=== PATIENT | male | born 1955 | race African-American/Black ===

== ENCOUNTER 2020-11-12 11:01 | Outpatient (REF) | payer MEDICARE, SELFPAY ==
--- NOTE | ~2020-11-12 | XR_ITS ---
EXAMINATION: XR LEFT KNEE XR BILATERAL KNEES CLINICAL INFORMATION: Left knee pain. COMPARISON: None TECHNIQUE: AP bilateral knees, 1 view. Left knee, 2 views. FINDINGS: AP BILATERAL KNEES: There is loss of bilateral medial knee compartment joint space. The lateral knee joint space is normal. No loose bodies or bony erosive changes seen. LEFT KNEE: There is moderate loss of patellofemoral compartment joint space with mild suprapatellar joint effusion. There is mild suprapatellar spurring as well. There is mild anterior knee superficial soft tissue swelling. No visible acute fracture seen. 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 Mild degenerative changes medial compartment right knee.
--- NOTE | ~2020-11-12 | XR_ITS ---
EXAMINATION: XR LEFT KNEE XR BILATERAL KNEES CLINICAL INFORMATION: Left knee pain. COMPARISON: None TECHNIQUE: AP bilateral knees, 1 view. Left knee, 2 views. FINDINGS: AP BILATERAL KNEES: There is loss of bilateral medial knee compartment joint space. The lateral knee joint space is normal. No loose bodies or bony erosive changes seen. LEFT KNEE: There is moderate loss of patellofemoral compartment joint space with mild suprapatellar joint effusion. There is mild suprapatellar spurring as well. There is mild anterior knee superficial soft tissue swelling. No visible acute fracture seen. XR/XR knee standing BI IMPRESSION: Medial and lateral compartment degenerative arthritic changes left knee with mild suprapatellar joint effusion, mild suprapatellar spurring. Mild degenerative changes medial compartment right knee.
== END 2020-11-12 11:02 | disposition home or self-care (01) ==
LOC: HO.HOSX 11:01
PROVIDERS: PCP Pediatrics; Visit Provider Orthopaedic Surgery
DX: M25.562 Pain in left knee (principal); M25.561 Pain in right knee; Z87.828 Personal history of other (healed) physical injury and trauma
CPT/HCPCS: 73560; 73565; 99202

== ENCOUNTER 2020-11-14 14:09 | Outpatient (REF) | payer MEDICARE, SELFPAY ==
--- NOTE | ~2020-11-14 | MR_ITS ---
EXAMINATION: MR KNEE WITHOUT CONTRAST, LEFT CLINICAL INFORMATION: Strain of the quadriceps muscle, fascia and tendon. COMPARISON: X-rays of the left knee October 2020. TECHNIQUE: MRI of the knee without contrast was performed using routine sequences on a high-field scanner. FINDINGS: MENISCI: Medial Meniscus: Intact. Lateral Meniscus: Intact. LIGAMENTS: Cruciate: Intact. Collateral: Intact. EXTENSOR MECHANISM: Patellar tendon: Postoperative changes which appear related to patellar tendon repair intact. There is slight anterior bowing of the patellar tendon of uncertain clinical significance. This raises a question of elongation perhaps in part related to the tear. Insall-Salvati ratio 1.2 Quadriceps: Tiny focus of increased signal at the insertion of the tendon which could reflect tendinosis or some minimal interstitial partial tearing. See sagittal image 12 series 4. Favor tendinosis. ARTICULAR CARTILAGE/BONE: Patellofemoral Compartment: Focal cartilage heterogeneity and central osteophyte formation in the medial trochlea. Patellar cartilage appears normal. Overall mild arthrosis. Medial Compartment: Normal. Lateral Compartment: Mild surface irregularity heterogeneity along the posterior tibial articular surface. Femoral cartilage normal. Overall minimal arthrosis. JOINT FLUID AND BURSAE: Normal. MR/MR knee LT wo con IMPRESSION: Postop changes related to patellar tendon surgery which appears intact. Slight anterior bowing of the tendon of uncertain clinical significance and may simply be related to the patient's position with the knee in extension. The surrounding ligaments and retinaculum also appear intact. Minimal abnormality at the quadriceps tendon insertion compatible with tendinosis or minimal interstitial partial tearing. Favor tendinosis. No transverse defect or tendon retraction. Mild arthrosis of the patellofemoral compartment. Minimal arthrosis of the lateral compartment.
== END 2020-11-14 14:10 | disposition home or self-care (01) ==
LOC: HO.MRI 14:09
PROVIDERS: PCP Pediatrics; Visit Provider Orthopaedic Surgery
DX: S76.112A Strain of left quadriceps muscle, fascia and tendon, initial encounter (principal); X58.XXXA Exposure to other specified factors, initial encounter; Y93.9 Activity, unspecified; Y92.9 Unspecified place or not applicable; Y99.9 Unspecified external cause status
CPT/HCPCS: 73721

== ENCOUNTER 2021-01-24 07:10 | Outpatient (REF) | payer MEDICARE, SELFPAY | END 2021-01-24 07:11 | disposition home or self-care (01) | LOC: HO.HOSX 07:10 | PROVIDERS: Visit Provider Physician Assistant | DX: Z13.89 Encounter for screening for other disorder (principal) ==

== ENCOUNTER 2024-02-04 12:23 | Emergency (ER) | payer OTHER, SELFPAY ==
--- NOTE | ~2024-02-04 | CT_ITS ---
EXAMINATION: CT ABDOMEN AND PELVIS WITH CONTRAST CLINICAL INFORMATION: Left lower quadrant pain and tenderness. COMPARISON: None available. TECHNIQUE: Multidetector volumetric images were obtained from the superior aspect of the liver through the pubic symphysis following administration 85 mL of Omnipaque 350 intravenous contrast. Sagittal and coronal reformatted images were obtained on the technologist's workstation. Oral contrast: No This CT examination was performed using dose optimization techniques as appropriate, variously including the following: *Automated exposure control *Adjustment of mA and/or kV according to patient size (this includes techniques or standardized protocols for targeted exams where dose is matched to indication/reason for exam; i.e. extremities or head) *Use of iterative reconstruction technique DLP: 1250 mGy-cm FINDINGS: LUNG BASES: The visualized lung bases are unremarkable. LIVER, GALLBLADDER, AND BILIARY TREE: The liver is normal in size, shape, and attenuation. There are numerous low-attenuation hepatic possible cysts, several too small to fully characterize with CT. No biliary ductal dilatation is present. The gallbladder is unremarkable with no evidence of radiopaque gallstones, gallbladder wall thickening, or obvious pericholecystic inflammatory changes. PANCREAS: Within the uncinate process of the pancreas (3:40), a 4.3 x 2.6 cm poorly enhancing lesion is seen. This shows no calcifications. There is mild adjacent fat stranding noted. There is no encasement of the adjacent superior mesenteric vein or inferior vena cava, although there is some stranding of the intervening fat planes. There are shotty peripancreatic lymph nodes. No pancreatic ductal dilatation is seen. There is no atrophic change. SPLEEN: Unremarkable. ADRENAL GLANDS: Unremarkable. KIDNEYS AND URETERS: The kidneys are normal in size, shape, and attenuation. No hydronephrosis, hydroureter, or calculi seen. Benign, simple low-attenuation bilateral renal cysts are seen, for which no imaging follow-up is recommended. No perinephric stranding. BLADDER: Unremarkable. GASTROINTESTINAL TRACT: There is a large hiatus hernia, containing the majority of the stomach. There is moderate diverticulosis, without acute diverticulitis. No bowel obstruction, free intraperitoneal air or abscess is seen. There is no focal bowel wall thickening. The vermiform appendix is not identified with certainty; however, there is no finding to suggest appendicitis. ABDOMINAL WALL: There is a small fat-containing umbilical hernia. LYMPH NODES: Normal. VASCULAR: There is mild aortoiliac atherosclerotic calcification. No abdominal aortic aneurysm or dissection is seen. PELVIC VISCERA: The prostate and seminal vesicles are unremarkable. OSSEOUS STRUCTURES: There is multi-level marked thoracolumbar degenerative disc disease. No acute or aggressive osseous finding is noted. CT/CT abdomen pelvis w IV con IMPRESSION: 1. Within the uncinate process of the pancreas, a 4.3 cm poorly enhancing lesion is seen. There is mild adjacent fat stranding noted, without encasement of adjacent vasculature. No pancreatic or biliary ductal dilatation is seen. Differential considerations include a pancreatic neoplasm and acute focal pancreatitis. Further work-up may be indicated, possibly to include biopsy. GI Medicine evaluation and management is recommended. 2. There are multiple low-attenuation hepatic likely cysts, many too small for full characterization with CT. These could be more fully evaluated with ultrasound or MRI, if clinically indicated. 3. There is a large hiatus hernia. 4. There is moderate diverticulosis, without acute diverticulitis. 5. There is a small fat-containing umbilical hernia. 6. There are multi-level degenerative changes of the spine. Fleischner guidelines were followed.
--- NOTE | ~2024-02-04 | CT_ITS ---
EXAMINATION: CT HEAD WITHOUT CONTRAST CLINICAL INFORMATION: Left-sided headache. Difficulty with speech. COMPARISON: None. TECHNIQUE: Contiguous axial imaging was performed from the skullbase to vertex without intravenous administration of contrast. This CT examination was performed using dose optimization techniques as appropriate, variously including the following: *Automated exposure control *Adjustment of mA and/or kV according to patient size (this includes techniques or standardized protocols for targeted exams where dose is matched to indication/reason for exam; i.e. extremities or head) *Use of iterative reconstruction technique DLP: 770 mGy-cm. FINDINGS: There is no evidence of acute intracranial hemorrhage or territorial infarction. No abnormal mass effect or midline shift is seen. Mejía to white matter differentiation is well preserved. No extra-axial fluid collections are identified. The ventricles are normal in size. There is no abnormal attenuation within the brain parenchyma. The soft tissues are normal. The mastoid air cells and visualized portions of the paranasal sinuses are well aerated. There is a chronic-appearing right nasal bone fracture partially visualized. A mild amount of fluid layers in the dependent right middle ear cavity and right mastoid air cells as well. The nasopharyngeal soft tissues appear grossly normal. CT/CT head/brain wo IV con IMPRESSION: No acute intracranial pathology. Mild amount of fluid in the right middle ear cavity and right mastoid air cells of indeterminate etiology.
--- NOTE | 2024-02-04 12:36 | ED.GENADULT ---
HPI - General Adult General Chief complaint: General Medical Stated complaint: Jaw pain L side Time Seen by Provider: 02/04/24 13:17 History of Present Illness HPI narrative: The patient is a 68-year-old male who has been having problems with the abdominal pains and has also been having problems with pain on the left side of his jaw and the left side of his head generally. He says that he was hospitalized at [facility] last month for what sounds like an episode of upper GI bleeding. He says he received a blood transfusion at [facility] when he was hospitalized last month. He says he also had upper and lower endoscopy and was told that he had some bleeding from what sounds like a hiatal hernia. The patient says that he went to his PCP's office 2 days ago and described that he has been having a lot of black stools and that he has been having the pain on the left side of his head and that he has been having the abdominal pains. He was encouraged to go to an emergency room at that time. He says he went to the emergency room at [facility] and waited 5 hours to be seen but was never taken an and so he left. He says last night he slept poorly because of his abdominal pains. This morning his doctor contacted him and again encouraged him to come to the hospital. He drove himself to the hospital today. He has not had a fever. Says that the abdominal pain is mostly in the left lower quadrant abdominal pain. The patient says he has been using Pepto-Bismol intermittently. He reports having black stools. He says that he was having black stools before he started using the Pepto-Bismol. Related Data Home Medications ?Medication ?Instructions ?Recorded ?Confirmed atorvastatin 20 mg tablet 20 mg PO DAILY 11/12/20 ferrous sulfate 300 mg (60 mg 300 mg PO BID 11/12/20 iron)/5 mL oral liquid losartan 50 mg tablet 50 mg PO DAILY 11/12/20 Previous Rx's ?Medication ?Instructions ?Recorded dicyclomine 10 mg capsule 10 mg PO TID PRN abdominal pain 02/04/24 #30 caps omeprazole 40 mg capsule,delayed 40 mg PO BID 30 days #60 caps 02/04/24 release Allergies Allergy/AdvReac Type Severity Reaction Status Date / Time No Known Allergies Allergy Verified 02/04/24 12:39 Review of Systems Review of Systems: Yes all other systems are reviewed and are negative [facility] Past Medical History Medical History (Updated 02/04/24 @ 19:35 by Daniel Rizzo MD) Rupture of left quadriceps tendon High cholesterol Hypertension Surgical History (Updated 11/12/20 @ 11:07 by LILIAN Talley) S/P left knee surgery (~2011) Social History Social History (Updated 11/12/20 @ 11:10 by LILIAN Talley) Alcohol intake: current Alcohol intake frequency: does not drink Smoked in Last 30 Days: No Use of substances other than those prescribed or required for medical reasons: Yes Substance Use Type: Marijuana Advance Directives: No Advance Directives Information Provided: Yes Current occupational status: unemployed Physical Exam ED Vital Signs: Vital Signs - 24 hr 02/04/24 12:37 02/04/24 13:33 02/04/24 14:58 Temperature 98 F Pulse Rate 87 82 66 Respiratory Rate 19 20 20 Blood Pressure 112/78 145/112 H 134/72 Pulse Oximetry 98 98 99 Oxygen Delivery Method Room Air Room Air Room Air 02/04/24 18:18 02/04/24 20:23 Temperature 97.2 F 97.2 F Pulse Rate 77 77 Respiratory Rate 15 15 Blood Pressure 167/80 H 167/80 H Pulse Oximetry 98 98 Oxygen Delivery Method Room Air Room Air BMI result Body Mass Index 43.1 Const Other: The patient is awake, alert, pleasant, cooperative. He does not appear obviously ill. HENMT Other: Face is symmetrical, mucous membranes moist. There is some left TMJ tenderness. Eyes Other: Pupils are round equal, conjunctivae clear Neck Other: No neck stiffness, no adenopathy, no JVD Resp Effort & Inspection: normal respiratory effort Auscultation: clear to auscultation bilaterally Cardio Rate: regular rate Rhythm: regular rhythm Heart sounds: S1 normal heart sound present and S2 normal heart sound present GI Other: The patient has a large abdomen. There is left lower quadrant tenderness. Back/Spine/Pelvis Other: No CVA percussion tenderness Skin Other: Skin is dry and unremarkable Neuro Other: The patient is awake and alert with a normal mental status. His face is symmetrical. His speech is clear. Eye movements are normal. Strength is intact and symmetrical in all extremities. There is no pronator drift. His gait is steady. Finger-nose is normal. He is neurologically intact. Extrem Other: No calf swelling or tenderness. Course Course Course Narrative: This is a Rapid Medical Examination (RME) performed by Jimbo Silva PA-C in triage. Full HPI, ROS, assessment and treatment plan per primary provider in the Main ED. 68 yo male hx of HTN, HDL here for eval of constant left sided headache x5-6 days. taking tylenol with temporary relief of pain. admits to assoc nausea without vomiting. denies hx of migraines. denies vision changes, dentail pain, scalp tenderness. also reports hospitalization in December for hiatal hernia. now endorses dark stools x months with associated fatigue. reports seeing his PCP and was advised to come to the ED. attempted to go to [facility] however left due to long wait times. exam nonfocal in triage. well appearing. Plan: labs ordered Medications Administered Discontinued Medications Generic Name Dose Route Start Last Admin Trade Name Freq PRN Reason Stop Dose Admin Dicyclomine HCl 10 mg 02/04/24 19:35 02/04/24 19:46 Dicyclomine Hcl 10 Mg Capsule PO 02/04/24 19:36 10 mg ONCE ONE Administration Sodium Chloride 1,000 mls @ 999 mls/hr 02/04/24 14:45 02/04/24 18:21 Ns IV 02/04/24 15:45 Infused .Q1H1M BETTY Infusion Iohexol 100 ml 02/04/24 15:38 02/04/24 15:39 Iohexol 350 Mg/Ml 100 Ml Infus..Btl IV 02/04/24 15:39 85 ml ONCE ONE Administration Sucralfate 2 gm 02/04/24 18:23 02/04/24 18:29 Sucralfate Oral Suspension 1 Gm/10 Ml Oral.Susp PO 02/04/24 18:24 2 gm ONCE ONE Administration Medical Decision Making Medical Decision Making [facility] Narrative: The patient is a 68-year-old male who has been having problems with abdominal pains and some GI bleeding for a few months. He has an appointment with GI in a couple of weeks. My initial impression was that the patient was here because he was having abdominal pains. The workup for his abdominal pain was fairly unremarkable. His labs are unremarkable and a CT of the abdomen and pelvis does not show any acute cause of his pain although there is a questionable finding of a possible pancreatic lesion of uncertain significance. The patient does not have pancreatitis. The patient was given IV fluids. Patient ultimately expressed that he had come to the emergency room in large part because his primary care doctor whom he had seen 2 days ago was concerned about the possibility that he might have had a stroke recently because his primary care doctor had thought that he had abnormal speech. The patient had explained to me that he did not think he had had abnormal speech any point although at 1 point when she called him at home she woke him from sleep and he may have sounded groggy. The patient seemed intent on getting a head CT who satisfy his PCP's concern about a possible stroke. His head CT is negative. On my rectal exam the patient had brown stool. There was certainly no melena. His brown stool is Hemoccult positive however. He is on omeprazole 20 mg b.i.d.. He had recent upper and lower endoscopy and apparently has a hiatal hernia and a history of Jac lesions. I think the patient may have some chronic low-grade GI bleeding but I do not think he requires hospitalization for GI bleed today. He has a fairly this soon upcoming appointment with his client relations associate. He will be advised to double his omeprazole. I will also prescribe dicyclomine for what he describes as 2 months of abdominal discomfort that prevents him from sleeping. The patient was discharged with a copy of his disc of his CT scan to bring to his client relations associate to discuss his pancreatic lesion. Lab Data 02/04/24 13:27 02/04/24 13:27 Labs: Lab Results 02/04/24 02/04/24 02/04/24 Range/Units 13:27 15:55 16:40 WBC 7.1 (4.8-10.8) X10*3/uL RBC 5.39 (4.60-5.80) X10*6/uL Hgb 13.5 L (14.0-18.0) g/dl Hct 41.3 L (42.0-52.0) % MCV 76.6 L (80.0-98.0) fL MCH 25.0 L (27.0-33.0) pg MCHC 32.7 (31.0-36.0) g/dl RDW 17.7 H (11.0-16.0) % Plt Count 310 (160-400) X10*3/uL MPV 10.4 (9.4-12.4) fL Immature Gran % (Auto) 0.3 (0.0-0.4) % Neut % (Auto) 54.4 (45-73) % Lymph % (Auto) 30.8 (20-40) % Grafton % (Auto) 10.5 (2-11) % Eos % (Auto) 3.2 (0-4) % Baso % (Auto) 0.8 (0-2) % Lymph # (Auto) 2.2 (1.2-4.9) X10*3/uL G[place]on # (Auto) 0.8 (0.1-1.2) X10*3/uL Eos # (Auto) 0.2 (0.0-0.4) X10*3/uL Baso # (Auto) 0.1 (0.0-0.2) X10*3/uL Abs Immat Gran (auto) 0.02 (0.00-0.03) X10*3/uL Absolute Neuts (auto) 3.9 (2.0-8.3) x10*3/uL Absolute Nucleated RBC 0.000 (0.0-0.012) X10*3/uL Nucleated RBC % (auto) 0.0 (0.0-0.2) /100WBC ESR 10 (0-15) MM/HR PT 12.0 (11.1-13.3) SEC INR 1.0 (0.9-1.1) Sodium 141 (135-145) mmol/L Potassium 3.8 (3.3-5.1) mmol/L Chloride 109 H (96-108) mmol/L Carbon Dioxide 23 (22-29) mmol/L Anion Gap 13 (12-20) BUN 16 (9-16) mg/dL Creatinine 1.17 (0.5-1.4) mg/dL Estim Creat Clear Calc 96.8 Estimated GFR > 60 Random Glucose 95 (60-115) mg/dL Calcium 9.1 (8.4-10.2) mg/dL Magnesium 2.3 (1.6-2.6) mg/dL Total Bilirubin 0.5 (0.0-1.0) mg/dL AST 15 (5-37) U/L ALT 14 (0-40) U/L Alkaline Phosphatase 58 (39-117) U/L Troponin I High Sens 3.2 (<3.5-35.0) ng/L C-Reactive Protein 0.61 H (< or = 0.50) mg/dL Total Protein 7.5 (6.5-8.0) g/dL Albumin 4.1 (3.5-5.0) g/dL Lipase 75 (8-78) U/L Urine Color Yellow Urine Appearance Clear Urine pH 6.5 (5.0-9.0) Ur Specific Alden >= 1.030 H (1.005-1.025) Urine Protein Negative (Neg-Trace) mg/dL Urine Glucose (UA) Negative (Negative) mg/dL Urine Ketones Trace (Negative) mg/dL Urine Blood Negative (Negative) Urine Nitrite Negative (Negative) Ur Leukocyte Esterase Moderate (2+) H (Negative) Urine RBC 0-2 (0-2) /HPF Urine WBC >50 H (0-5) /HPF Ur Squamous Epith Cells 3-5 (0-2) /HPF Urine Bacteria None Seen (None Seen) Hyaline Casts 0-2 (0-2) /LPF Stool Occult Blood POSITIVE (NEGATIVE) Discharge Plan Discharge Clinical Impression: Abdominal pain, Pancreatic lesion, Occult blood positive stool, Left-sided headache, Left-sided temporomandibular joint pain-dysfunction syndrome Patient Disposition: Home, Self-Care Additional Instructions: Your testing in the emergency room today does not show signs of a stroke. It also does not show any acute cause of your abdominal pain. Your stool testing shows a microscopic amount of blood in your stool but I do not think you are having significant ongoing bleeding. Your blood counts are good. I would recommend increasing your omeprazole. Currently you are taking 20 mg 2 times a day. You may take 40 mg 2 times a day. I have sent a new prescription for this dose of omeprazole. I have also sent a prescription for medication called dicyclomine which you may try to see if it helps with your abdominal pains. This is an antispasmodic medication. Please plan on keeping your appointment that you have soon with your client relations associate. You will need to discuss the microscopic blood in your stool. Additionally the CT scan of your abdomen showed a lesion on your pancreas that you should discuss with your client relations associate as well. I do not think you are having a stroke. I think the pain on the left side of your face may be coming from the temporomandibular joint of the left side of your jaw. This is a frequent source of facial pain. You may take Tylenol for this pain. Please also follow up with your primary care doctor. Return to the emergency room if you feel significantly worse. Prescriptions: New dicyclomine 10 mg capsule 10 mg PO TID PRN (Reason: abdominal pain) Qty: 30 0RF omeprazole 40 mg capsule,delayed release(DR/EC) 40 mg PO BID 30 Days Qty: 60 0RF Referrals: [facility] [Outside] (abdominal pain, pancreatic lesion, left TMJ pain) Wiley Leger MD [Physician] - (Hemoccult-positive stool, pancreatic lesion on CT scan) Interventions: ED Discharge Assessment Last Done: 02/04/24 20:23 Discharge Date/Time: 02/04/24 20:24 Print Language: Guamanian
[2024-02-04 12:37] VITALS: BP 112/78; PULSE 87; RESP 19; TEMP 36.6; O2SAT 98; BMI 43.1
[2024-02-04 13:32] LABS: MANUAL DIFF FLAG NO
[2024-02-04 13:33] VITALS: BP 145/112; PULSE 82; RESP 20; O2SAT 98
[2024-02-04 13:34] LABS: Basophils Absolute Auto 0.1 X10*3/uL (0.0-0.2); Basophils Percent Auto 0.8 % (0-2); Eosinophils Absolute Auto 0.2 X10*3/uL (0.0-0.4); Eosinophils Percent Auto 3.2 % (0-4); Hematocrit 41.3 % (42.0-52.0); Hemoglobin 13.5 g/dl (14.0-18.0); Imm Gran Abs Auto 0.02 X10*3/uL (0.00-0.03); Imm Gran Pct Auto 0.3 % (0.0-0.4); Lymphocytes Absolute Auto 2.2 X10*3/uL (1.2-4.9); Lymphocytes Percent Auto 30.8 % (20-40); Mean Corpuscular HGB Conc 32.7 g/dl (31.0-36.0); Mean Corpuscular Volume 76.6 fL (80.0-98.0); Mean Platelet Volume 10.4 fL (9.4-12.4); Monocytes Absolute Auto 0.8 X10*3/uL (0.1-1.2); Monocytes Percent Auto 10.5 % (2-11); Neutrophils Absolute Auto 3.9 x10*3/uL (2.0-8.3); Neutrophils Percent Auto 54.4 % (45-73); Platelet Count 310 X10*3/uL (160-400); Red Blood Count 5.39 X10*6/uL (4.60-5.80); Red Cell Distribution Width 17.7 % (11.0-16.0); White Blood Count 7.1 X10*3/uL (4.8-10.8)
--- NOTE | 2024-02-04 13:34 | PC.NURSE ---
Pt reports diffuse abd pain mostly to LLQ without vomiting. Also reports constipation with black stools. States recent GI bleed at [facility] with transfusions needed. Also reports headache left sided and jaw pain. Denies CP at this time and denies SOB or dizziness. HTN, took meds today. NSR on tele. Neuros intake, speech is clear and pt reports normal for him. States headache is 3/10 abd pain is 10/10
--- NOTE | 2024-02-04 13:38 | ECG_ITS ---
Test Reason : JAW PAIN Blood Pressure : / mmHG Vent. Rate : 072 BPM Atrial Rate : 072 BPM P-R Int : 148 ms QRS Dur : 092 ms QT Int : 418 ms P-R-T Axes : 040 -01 018 degrees QTc Int : 457 ms Normal sinus rhythm Nonspecific T wave abnormality Abnormal ECG No previous ECGs available Referred By: Daniel Rizzo Electronically Signed By:JAM FERRARA MD
[2024-02-04 13:45] LABS: C Reactive Protein 0.61 mg/dL (< or = 0.50)
[2024-02-04 13:47] LABS: Alanine Aminotransferase 14 U/L (0-40); Albumin Level 4.1 g/dL (3.5-5.0); Alkaline Phosphatase 58 U/L (39-117); Anion Gap 13 (12-20); Aspartate Amino Transferase 15 U/L (5-37); Bilirubin Total 0.5 mg/dL (0.0-1.0); Blood Urea Nitrogen 16 mg/dL (9-16); Calcium 9.1 mg/dL (8.4-10.2); Carbon Dioxide 23 mmol/L (22-29); Chloride 109 mmol/L (96-108); Creatinine Clr Calc Pharmacy 96.8; Estimated Glomerular Filt Rate > 60; Glucose Random 95 mg/dL (60-115); Lipase 75 U/L (8-78); Magnesium 2.3 mg/dL (1.6-2.6); Potassium 3.8 mmol/L (3.3-5.1); Sodium 141 mmol/L (135-145); Total Protein 7.5 g/dL (6.5-8.0)
[2024-02-04 13:54] LABS: Troponin-I High Sensitivity 3.2 ng/L (<3.5-35.0)
[2024-02-04 14:58] VITALS: BP 134/72; PULSE 66; RESP 20; O2SAT 99
[2024-02-04] MEDS: 0.9 % Sodium Chloride 1,000 ML 999 ML IV (15:16)
--- NOTE | 2024-02-04 15:20 | PC.NURSE ---
IV established, awaits CT scan. abd discomfort and headache unchanged at this time, eyes closed when not talking to pt. Warm blanket given and lights off
[2024-02-04 15:35] LABS: Erythrocyte Sedimentation Rate 10 MM/HR (0-15)
[2024-02-04] MEDS: iohexoL 350 MG/ML 100 ML INFUS..BTL IV (15:39)
[2024-02-04 16:04] LABS: Appearance Urine Clear; Color Urine Yellow; Glucose Urine UA Negative (Negative); Leukocyte Esterase Urine Moderate (2+) (Negative); Nitrite Urine Negative (Negative); PH 6.5 (5.0-9.0); Specific Gravity - Urine >= 1.030 (1.005-1.025); UMIC TRIGGER UACC YES; Urine Blood Negative (Negative); Urine Ketones Trace mg/dL (Negative); Urine Protein Negative (Neg-Trace)
[2024-02-04 16:06] LABS: Bacteria Urine None Seen (None Seen); Hyaline Casts Urine 0-2 /LPF (0-2); RBC Urine 0-2 /HPF (0-2); UACC Culture Trigger YES; WBC Urine >50 /HPF (0-5)
[2024-02-04 16:51] LABS: OBS Int Ctl Valid YES; OBS1 POSITIVE (NEGATIVE)
[2024-02-04 18:18] VITALS: BP 167/80; PULSE 77; RESP 15; TEMP 36.2; O2SAT 98
--- NOTE | 2024-02-04 18:25 | PC.NURSE ---
Pt agitated while awaiting CT results, Nathen called and states they are reading scan at this time. Dr Rizzo to order Sulcrafate
[2024-02-04] MEDS: Sucralfate Oral Suspension 1 GM/10 ML ORAL.SUSP 2 GM PO (18:29)
--- NOTE | 2024-02-04 18:44 | PC.NURSE ---
Pt caio wharton head CT states PCP wanted tor/o stroke. Dr Rizzo to bedside and neuros are intact, plan for head CT
[2024-02-04] MEDS: Dicyclomine HCl 10 MG CAPSULE PO (19:46)
--- NOTE | 2024-02-04 19:48 | PC.NURSE ---
this RN resumed care of pt at 1900. a&ox4. vss and up to date. nsr on the media monitor. pt c/o 06/09 diffuse abd pain at this time. medication administered per provider order. effectiveness pending. no sob/wob noted. respirations even/unlabored. plan of care ongoing. call john placed within reach.
[2024-02-04 20:23] VITALS: BP 167/80; PULSE 77; RESP 15; TEMP 36.2; O2SAT 98
--- NOTE | 2024-02-04 20:23 | PC.NURSE ---
pt verbalizing pain level decreased to a 5/10 post medication administration. physical copies of CT results provided to PT.
== END 2024-02-04 20:24 | disposition home or self-care (01) ==
PROVIDERS: Physician Assistant Medical; Emergency Provider Emergency Medicine; PCP Pediatrics
DX: R68.84 Jaw pain (principal); K92.2 Gastrointestinal hemorrhage, unspecified; R51.9 Headache, unspecified; R94.31 Abnormal electrocardiogram [ECG] [EKG]; R11.0 Nausea; N39.0 Urinary tract infection, site not specified; R10.32 Left lower quadrant pain; F12.90 Cannabis use, unspecified, uncomplicated; Z79.899 Other long term (current) drug therapy
CPT/HCPCS: 36415; 70450; 74177; 80053; 81001; 82272; 83690; 83735; 84484; 85025; 85610; 85652; 86140; 87086; 93005; 96360; 96361; 99284; 99285; Q9967

== ENCOUNTER → 2024-02-04 13:38 | Outpatient (BNV) | payer OTHER, SELFPAY | PROVIDERS: Emergency Provider Emergency Medicine; PCP Pediatrics; Visit Provider Internal Medicine Cardiovascular Disease | DX: R68.84 Jaw pain (principal); R94.31 Abnormal electrocardiogram [ECG] [EKG] | CPT/HCPCS: 93010 ==

== ENCOUNTER 2024-02-25 09:12 | Inpatient (IN) | payer MEDICARE, OTHER, SELFPAY ==
--- NOTE | ~2024-02-25 | MR_ITS ---
EXAMINATION: MR ABDOMEN WITHOUT AND WITH CONTRAST CLINICAL INFORMATION: Abnormal pancreas. COMPARISON: CT scan of abdomen and pelvis 02/25/2024 and 02/04/2024. TECHNIQUE: MR abdomen was performed without and with use of 10 mL intravenous Gadavist gadolinium contrast. Postcontrast images are performed in multiphase dynamic sequences. Imaging was performed in 3 planes. 3-D MRCP sequence is obtained. FINDINGS: LUNG BASES: The visualized lung bases are unremarkable. Large sliding hiatal hernia containing stomach is redemonstrated. LIVER, GALLBLADDER, AND BILIARY TREE: The liver is normal in size, contour and signal intensity. Multiple scattered simple cysts are noted throughout the liver with the largest one in the left hepatic lobe anteriorly measuring 3.4 cm in maximum dimension. The gallbladder is unremarkable with no evidence of gallbladder wall thickening, or obvious pericholecystic inflammatory changes. No evidence of intrahepatic biliary ductal dilatation. Common bile duct is normal in caliber. No filling defect is noted in the common bile duct. PANCREAS: Abnormal heterogeneous masslike appearance of the uncinate process. As best seen on the postcontrast images, there is hypoenhancing masslike lesion in the uncinate process with peripheral irregular rim enhancement (series 101 image 77). The finding measures 3.1 x 4.6 cm in AP and transverse dimensions. The pancreatic duct in the pancreatic head is dilated measuring 0.8 cm diameter which is presumed to be related to the mass effect over the pancreatic duct by the masslike lesion in the uncinate process. The pancreatic duct in the pancreatic tail measures 0.4 cm in diameter. Remainder of the pancreas enhances normally. No additional pancreatic mass lesion is seen. There might be mild fat stranding around the uncinate process of the pancreas. Fat plane between the uncinate process lesion and adjacent SMA and SMV appears to be preserved. There is mass effect over the transverse portion of the duodenum. SPLEEN: Normal. ADRENAL GLANDS: No focal adrenal nodule. KIDNEYS AND URETERS: The kidneys are normal in size, shape, and enhance symmetrically. No hydronephrosis. No perinephric stranding. Several bilateral subcentimeter simple renal cysts are noted. A 1 cm simple cyst is noted in the lower pole of the left kidney. No following imaging for renal cysts is warranted. GASTROINTESTINAL TRACT: Large sliding hiatal hernia containing stomach. Evaluation of the bowel on the MRI is somewhat limited without oral contrast. No abnormal bowel dilatation is seen. ABDOMINAL WALL: No significant hernia is appreciated. LYMPH NODES: No pathologically enlarged lymph nodes. VASCULAR: Intrahepatic and extrahepatic portal venous system, hepatic veins, splenic vein, SMV, IVC, aorta, hepatic arteries, celiac axis, and SMA opacify normally and are normal in caliber. OSSEOUS STRUCTURES: Marrow signal normal. MR/MR abdomen wo/w con IMPRESSION: 1. Masslike lesion in the uncinate process of the pancreas measuring 3.1 x 4.6 cm in AP and transverse dimensions. The finding is concerning for pancreatic neoplasm. Other differential possibility may include paraduodenal/groove pancreatitis. Recommend correlation with tissue sampling. Recommend clinical correlation, correlation with lab values and tumor markers. 2. No evidence of biliary ductal dilatation. 3. Multiple simple hepatic cysts. 4. Large sliding hiatal hernia containing stomach.
--- NOTE | ~2024-02-25 | CT_ITS ---
EXAMINATION: CT ABDOMEN AND PELVIS WITH CONTRAST CLINICAL INFORMATION: Upper abdominal pain with elevated lipase and history of pancreatic lesion COMPARISON: 02/04/2024 TECHNIQUE: Multidetector volumetric images were obtained from the superior aspect of the liver through the pubic symphysis following administration 100 mL of Omnipaque 350 intravenous contrast. Sagittal and coronal reformatted images were obtained on the technologist's workstation. Oral contrast: No This CT examination was performed using dose optimization techniques as appropriate, variously including the following: *Automated exposure control *Adjustment of mA and/or kV according to patient size (this includes techniques or standardized protocols for targeted exams where dose is matched to indication/reason for exam; i.e. extremities or head) *Use of iterative reconstruction technique DLP: 1207 mGy-cm FINDINGS: LUNG BASES: The visualized lung bases are unremarkable. LIVER, GALLBLADDER, AND BILIARY TREE: Liver is of low attenuation with multiple low-attenuation lesions most likely cysts or hemangiomas stable since previous examination. The largest lesion in the left lobe of the liver measured 3.5 x 2.4 cm with attenuation of minus 5HU. The gallbladder is unremarkable with no evidence of radiopaque gallstones, gallbladder wall thickening, or obvious pericholecystic inflammatory changes. PANCREAS: There is ill-defined mass in the uncinate process of pancreas, measured 3.6 x 3.6 x 4.7 cm of low attenuation and there is mild peripancreatic stranding surrounding the pancreatic head and uncinate process. Pancreatic duct is prominent, measured 0.7 cm in the pancreatic head. There are a few small peripancreatic lymph nodes visualized. SPLEEN: Unremarkable. ADRENAL GLANDS: Unremarkable. KIDNEYS AND URETERS: There is small exophytic cyst in the lower pole of left kidney measured 0.9 cm BLADDER: Unremarkable. GASTROINTESTINAL TRACT: There are changes of colonic diverticulosis without diverticulitis. Moderate size hiatal hernia. Appendix is not clearly seen ABDOMINAL WALL: Fat-containing small umbilical hernia LYMPH NODES: Small scattered mesenteric lymph nodes present VASCULAR: Unremarkable. PELVIC VISCERA: Unremarkable. OSSEOUS STRUCTURES: Unremarkable. CT/CT abdomen pelvis w IV con IMPRESSION: Pancreatitis versus pancreatic uncinate process neoplasm correlate with clinical history and follow-up by MRI. Multiple small benign-appearing lesions in the liver most likely cysts or hemangiomas Small umbilical hernia Moderate size hiatal hernia Diverticulosis and lymph nodes in the mesentery Fleischner guidelines were followed.
[2024-02-25 09:22] VITALS: BP 159/78; PULSE 84; RESP 19; TEMP 36.6; O2SAT 98; BMI 42.0
[2024-02-25 09:40] LABS: MANUAL DIFF FLAG NO
[2024-02-25 09:41] LABS: Basophils Percent Auto 0.4 % (0-2); Eosinophils Absolute Auto 0.3 X10*3/uL (0.0-0.4); Eosinophils Percent Auto 2.7 % (0-4); Hematocrit 37.3 % (42.0-52.0); Hemoglobin 12.2 g/dl (14.0-18.0); Imm Gran Abs Auto 0.02 X10*3/uL (0.00-0.03); Imm Gran Pct Auto 0.2 % (0.0-0.4); Lymphocytes Absolute Auto 2.3 X10*3/uL (1.2-4.9); Lymphocytes Percent Auto 25.1 % (20-40); Mean Corpuscular HGB Conc 32.7 g/dl (31.0-36.0); Mean Corpuscular Hemoglobin 25.3 pg (27.0-33.0); Mean Corpuscular Volume 77.4 fL (80.0-98.0); Mean Platelet Volume 9.7 fL (9.4-12.4); Monocytes Absolute Auto 0.8 X10*3/uL (0.1-1.2); Monocytes Percent Auto 9.1 % (2-11); Neutrophils Absolute Auto 5.8 x10*3/uL (2.0-8.3); Neutrophils Percent Auto 62.5 % (45-73); Platelet Count 296 X10*3/uL (160-400); Red Blood Count 4.82 X10*6/uL (4.60-5.80); Red Cell Distribution Width 16.5 % (11.0-16.0); White Blood Count 9.3 X10*3/uL (4.8-10.8)
[2024-02-25 10:00] LABS: Alanine Aminotransferase 9 U/L (0-40); Albumin Level 4.1 g/dL (3.5-5.0); Alkaline Phosphatase 57 U/L (39-117); Anion Gap 12 (12-20); Aspartate Amino Transferase 13 U/L (5-37); Bilirubin Direct 0.2 mg/dL (0.0-0.5); Bilirubin Total 0.6 mg/dL (0.0-1.0); Blood Urea Nitrogen 15 mg/dL (9-16); Calcium 9.3 mg/dL (8.4-10.2); Carbon Dioxide 24 mmol/L (22-29); Chloride 109 mmol/L (96-108); Creatinine Clr Calc Pharmacy 108.4; Estimated Glomerular Filt Rate > 60; Glucose Random 129 mg/dL (60-115); Potassium 3.4 mmol/L (3.3-5.1); Sodium 142 mmol/L (135-145); Total Protein 7.5 g/dL (6.5-8.0)
[2024-02-25 10:09] LABS: Lipase 1530 U/L (8-78)
[2024-02-25 11:10] VITALS: BP 155/86; PULSE 86; RESP 16; TEMP 36.6; O2SAT 98
--- NOTE | 2024-02-25 11:11 | ED.ABDPAIN ---
HPI - Abdominal Pain General Chief Complaint: Abdominal Pain Stated Complaint: abd pain Time Seen by Provider: 02/25/24 11:58 History of Present Illness ED Provider: Matthias DIGGS narrative: The patient is a 68-year-old male who has been having problems with abdominal symptoms over the last few months. He had had dark stools and was hospitalized briefly for an uncertain GI bleed at [facility] in November. He received a blood transfusion. I believe no definite source of bleeding was identified at the time. He continued to have abdominal pains and came to the emergency room here 3 weeks ago. At that time he had unremarkable labs. A CT of the abdomen and pelvis showed a 4.3 cm poorly enhancing lesion. The differential included a pancreatic neoplasm versus focal pancreatitis. The patient was discharged to follow up with his manager managed care. Patient says that he is continued to have abdominal pains that have really interfered with his ability to function since leaving the emergency room that day. He says that he followed up with his manager managed care several days ago but no particular plan was made. He returns today because he continues to have ongoing abdominal pain and nausea. He also says that his stools have been floating over the last several days. He says his stools are dark but not black. He has not had a fever. He has had a decreased appetite. No vomiting. Related Data Home Medications ?Medication ?Instructions ?Recorded ?Confirmed atorvastatin 20 mg tablet 20 mg PO DAILY 11/12/20 02/25/24 acetaminophen 650 mg 1,300 mg PO Q6H PRN Pain 02/25/24 02/25/24 tablet,extended release losartan 100 1 tab PO DAILY 02/25/24 02/25/24 mg-hydrochlorothiazide 25 mg tablet Previous Rx's ?Medication ?Instructions ?Recorded dicyclomine 10 mg capsule 10 mg PO TID PRN abdominal pain 02/04/24 #30 caps omeprazole 40 mg capsule,delayed 40 mg PO BID 30 days #60 caps 02/04/24 release Allergies Allergy/AdvReac Type Severity Reaction Status Date / Time No Known Allergies Allergy Verified 02/25/24 09:23 Review of Systems Review of Systems Yes all other systems are reviewed and are negative [facility] Past Medical History Medical History Rupture of left quadriceps tendon High cholesterol Hypertension Surgical History S/P left knee surgery (~2011) Social History Social History Household Members: Spouse Housing: House Alcohol intake: current Alcohol intake frequency: does not drink Patient Tobacco Use Status: Never used Tobacco Smoked in Last 30 Days: No Second Hand Smoke Exposure: No Use of substances other than those prescribed or required for medical reasons: No Substance Use Type: Marijuana Currently Displaying Signs/Symptoms of Drug Intoxication Withdrawal: No Any prior treatment program specific to substance use: No Have you been hit, kicked, punched, or otherwise hurt by someone within the past year? If so, by whom?: No Do you feel safe in your current relationship?: Yes Is there a partner from a previous relationship who is making you feel unsafe now?: No Are you made to feel afraid or neglected: No Advance Directives: No Advance Directives Information Provided: Yes Do you have a plan to hurt others: No Plan Recently lost weight without trying: No Eating poorly because of decreased appetite: Yes Nutrition Risks: No Nutritional Risk Current occupational status: unemployed Physical Exam ED Vital Signs: Vital Signs - 24 hr 02/25/24 09:22 02/25/24 11:10 02/25/24 14:00 Temperature 98 F 97.9 F 97.8 F Pulse Rate 84 86 73 Respiratory Rate 19 16 15 Blood Pressure 159/78 H 155/86 H 154/66 H Pulse Oximetry 98 98 97 Oxygen Delivery Method Room Air Room Air Room Air 02/25/24 15:28 02/25/24 16:00 Temperature 97.6 F 98.3 F Pulse Rate 77 74 Respiratory Rate 18 15 Blood Pressure 167/79 H 149/75 H Pulse Oximetry 99 99 Oxygen Delivery Method Room Air Room Air BMI result Body Mass Index 41.7 Const Other: The patient is awake, alert, pleasant, cooperative. He has a normal mental status. He does not appear acutely toxic. HENMT Other: Face is symmetrical. Mucous membranes moist. Eyes Other: Pupils are round equal, conjunctivae clear Neck Other: No apparent JVD Resp Effort & Inspection: normal respiratory effort Auscultation: clear to auscultation bilaterally Cardio Rate: regular rate Rhythm: regular rhythm Heart sounds: S1 normal heart sound present and S2 normal heart sound present GI Other: Mild upper abdominal tenderness. Skin Other: Skin is dry and unremarkable Neuro Other: The patient is awake and alert with a normal mental status. Cranial nerves are grossly intact. He moves his extremities symmetrically. No lateralizing findings. Extrem Other: No peripheral edema Course Course Course Narrative: This is an RME: Additional HPI, ROS, PE not included below will be deferred to primary provider. RME assessment and note performed by: Brianna Villalobos PA-C This is a 68-year-old male, with a history of hypertension, who presents emergency department with complaints of ongoing abdominal pain for the last 2 weeks. He endorses nausea. He was seen here 2 weeks ago where he had a CT scan which revealed a uncinate process of the pancreas, a 4.3 cm poorly enhancing lesion. Also showing mild adjacent fat stranding. He was advised to follow-up with GI. He followed up with [facility] on Thursday however they did not do anything as they could not review the CT scan that was performed here at [facility] 2 weeks ago as the disc was not compatible with their system. Vital signs within normal limits. He has diffuse abdominal tenderness throughout. Labs were previously ordered, he has an elevated lipase of 1530, from 75 which was performed 2 weeks ago. Vital signs within normal limits. Informed charge nurse that patient should be brought back sooner rather than later. He is nontoxic-appearing. Plan: Further ER evaluation needed. Medical Decision Making Medical Decision Making MDM Narrative: The patient is a 68-year-old male with persistent upper abdominal pain over the last few weeks. He was seen here 3 weeks ago. He had a normal lipase at that time. A CT of the abdomen showed a pancreatic lesion of uncertain significance. He was discharged to follow up with Gastroenterology. He returns today with persistent symptoms has a lipase of 1500. His CT scan has been read as showing signs of pancreatitis and a possible lesion. The patient will be admitted for symptom care and further evaluation. Lab Data 02/25/24 09:35 02/25/24 09:35 Labs: Lab Results 02/25/24 Range/Units 09:35 WBC 9.3 (4.8-10.8) X10*3/uL RBC 4.82 (4.60-5.80) X10*6/uL Hgb 12.2 L (14.0-18.0) g/dl Hct 37.3 L (42.0-52.0) % MCV 77.4 L (80.0-98.0) fL MCH 25.3 L (27.0-33.0) pg MCHC 32.7 (31.0-36.0) g/dl RDW 16.5 H (11.0-16.0) % Plt Count 296 (160-400) X10*3/uL MPV 9.7 (9.4-12.4) fL Immature Gran % (Auto) 0.2 (0.0-0.4) % Neut % (Auto) 62.5 (45-73) % Lymph % (Auto) 25.1 (20-40) % Villalba % (Auto) 9.1 (2-11) % Eos % (Auto) 2.7 (0-4) % Baso % (Auto) 0.4 (0-2) % Lymph # (Auto) 2.3 (1.2-4.9) X10*3/uL Villalba # (Auto) 0.8 (0.1-1.2) X10*3/uL Eos # (Auto) 0.3 (0.0-0.4) X10*3/uL Baso # (Auto) 0.0 (0.0-0.2) X10*3/uL Abs Immat Gran (auto) 0.02 (0.00-0.03) X10*3/uL Absolute Neuts (auto) 5.8 (2.0-8.3) x10*3/uL Absolute Nucleated RBC 0.000 (0.0-0.012) X10*3/uL Nucleated RBC % (auto) 0.0 (0.0-0.2) /100WBC Sodium 142 (135-145) mmol/L Potassium 3.4 (3.3-5.1) mmol/L Chloride 109 H (96-108) mmol/L Carbon Dioxide 24 (22-29) mmol/L Anion Gap 12 (12-20) BUN 15 (9-16) mg/dL Creatinine 1.03 (0.5-1.4) mg/dL Estim Creat Clear Calc 108.4 Estimated GFR > 60 Random Glucose 129 H (60-115) mg/dL Calcium 9.3 (8.4-10.2) mg/dL Total Bilirubin 0.6 (0.0-1.0) mg/dL Direct Bilirubin 0.2 (0.0-0.5) mg/dL AST 13 (5-37) U/L ALT 9 (0-40) U/L Alkaline Phosphatase 57 (39-117) U/L Troponin I High Sens 4.1 (<3.5-35.0) ng/L Total Protein 7.5 (6.5-8.0) g/dL Albumin 4.1 (3.5-5.0) g/dL Triglycerides 98 (<150) mg/dL Cholesterol 126 (<200) mg/dL LDL Cholesterol, Calc 73 (<100) mg/dL HDL Cholesterol 34 L (>40) mg/dL Lipase 1530 H (8-78) U/L Medications Administered Generic Name Dose Route Start Last Admin Trade Name Freq PRN Reason Stop Dose Admin Enoxaparin Sodium 40 mg 02/25/24 18:00 02/25/24 19:30 Enoxaparin Sodium 40 Mg/0.4 Ml Syringe SUBCUT Not Given Q24H BETTY Hydromorphone HCl 0.5 mg 02/25/24 17:51 02/25/24 19:29 Hydromorphone Hcl 1 Mg/Ml Syringe IVPUSH 0.5 mg Q4H PRN Administration Pain, Severe (Pain Scale 7-10) Protocol Lactated Ringer's 1,000 mls @ 125 mls/hr 02/25/24 18:00 02/25/24 19:29 Lr IVCONT 125 mls/hr .Q8H BETTY Administration Ondansetron HCl 4 mg 02/25/24 17:46 02/25/24 19:29 Ondansetron Hcl 4 Mg/2 Ml Vial IVPUSH 4 mg Q8H PRN Administration Nausea and Vomiting Sodium Chloride 3 ml 02/26/24 00:00 02/25/24 22:22 0.9 % Sodium Chloride Flush 3 Ml Syringe IVFLUSH Not Given QSHIFT BETTY Discontinued Medications Generic Name Dose Route Start Last Admin Trade Name Freq PRN Reason Stop Dose Admin Sodium Chloride 1,000 mls @ 999 mls/hr 02/25/24 12:15 02/25/24 13:16 Ns IV 02/25/24 13:15 Infused .Q1H1M BETTY Infusion Iohexol 100 ml 02/25/24 12:45 02/25/24 12:45 Iohexol 350 Mg/Ml 100 Ml Infus..Btl IV 02/25/24 12:46 85 ml ONCE ONE Administration Morphine Sulfate 4 mg 02/25/24 15:20 02/25/24 15:29 Morphine Sulfate 4 Mg/Ml Cartridge IVPUSH 02/25/24 15:21 4 mg ONCE ONE Administration Protocol Ondansetron HCl 4 mg 02/25/24 15:20 02/25/24 15:29 Ondansetron Hcl 4 Mg/2 Ml Vial IVPUSH 02/25/24 15:21 4 mg ONCE ONE Administration Discharge Plan Discharge Clinical Impression: Acute pancreatitis Patient Disposition: Admitted As Inpatient Interventions: Admission Worksheet (ED) Last Done: 02/25/24 19:34 Discharge Date/Time: 02/25/24 20:16
--- NOTE | 2024-02-25 12:04 | PC.NURSE ---
a&ox4. vss and up to date. nsr on the marketing editor. pt presents w/ abd pain/nausea x 2 weeks. denies fever/chills/vomiting. pt reports decreased PO intake. recently seen in ED x 2 weeks ago - received CT scan/followed up w/ GI at [facility] on thursday. pt verbalizes no interventions completed at recent appointment. abd tender w/ palpation. pt seemingly uncomfortable as he is tearful/states difficulty moving d/t pain. no sob/wob noted. respirations even/unlabored. plan of care ongoing. call john placed within reach.
[2024-02-25 12:07] VITALS: BMI 41.7
[2024-02-25] MEDS: 0.9 % Sodium Chloride 1,000 ML 999 ML IV (12:15)
--- NOTE | 2024-02-25 12:16 | PC.NURSE ---
20gIV placed in the right AC - IVF administered per provider order. pt waiting to go to CT at this time.
[2024-02-25] MEDS: iohexoL 350 MG/ML 100 ML INFUS..BTL IV (12:45)
--- NOTE | 2024-02-25 12:50 | PC.NURSE ---
pt to CT at this time.
[2024-02-25 14:00] VITALS: BP 154/66; PULSE 73; RESP 15; TEMP 36.6; O2SAT 97
[2024-02-25 15:28] VITALS: BP 167/79; PULSE 77; RESP 18; TEMP 36.4; O2SAT 99
[2024-02-25] MEDS: Morphine Sulfate 4 MG/ML CARTRIDGE IVPUSH (15:29)
[2024-02-25] MEDS: ondansetron HCL 4 MG/2 ML VIAL IVPUSH ×2 (15:29→19:29)
--- NOTE | 2024-02-25 15:33 | PC.NURSE ---
pt verbalizing increase in diffuse abd pain - requesting medication. medication administered per provider order. effectiveness pending.
[2024-02-25 16:00] VITALS: BP 149/75; PULSE 74; RESP 15; TEMP 36.8; O2SAT 99
--- NOTE | 2024-02-25 16:27 | P.HPHOSP_ITS ---
History of Present Illness Date of Service: 02/25/24 Attending physician on admission: Derian Brizuela Chief Complaint: Abdominal pain Pt is a 68-year-old male with a PMH significant for HTN, HLD, and GERD who presents to the ED for evaluation of diffuse abdominal pain ongoing for the past 3 months but worsening over the past 3 days. Patient reports he has been sleeping on the floor since November due to ?excruciating? abdominal pain. Describes pain as sharp and stabbing, diffuse, and wrapping around to his back. Initially presented in November to [facility] for abdominal pain and black stools. States he was kept overnight and transfused 1 unit blood, though no source GI bleeding was apparently found. [place] [facility] [place] states he recently had a negative EGD and colonoscopy, though it is not clear if it was [place] [facility] [facility] during his November hospitalization. Patient presented to the ED here 3 weeks prior on 02/04/2024 with abdominal pain. Workup at that time included CT of abdomen and pelvis that showed a 4.3 cm poorly enhancing lesion suggestive of pancreatic neoplasm versus focal pancreatitis. Labs at that time were unremarkable, including normal lipase of 75. Patient was discharged home to follow up with GI, which he did on Thursday. States nothing was done during the appointment and they could not access disc with CT imaging. Presents today as abdominal pain has worsened significantly since Thursday. Has experienced some nausea but no vomiting, as well as decreased p.o. intake. Also states that yesterday had some chest pressure that felt like a ?squeezing sensation? around his heart. No longer experiencing black stools, but stools still dark-colored and loose. Endorses tenesmus. No shortness of breath or difficulty breathing. No fever, chills. Patient denies history of significant alcohol use. No smoking or illicit substance use. In the ED pt was hypertensive up to 167/79, vitals otherwise stable and WNL. Labs were significant for H&H of 12.2/37.3 (down from 13 0.5/41.3 on 02/04/2024) and elevated lipase of 1530, otherwise grossly unremarkable and baseline for patient. No leukocytosis. No significant electrolyte abnormalities. Renal and hepatic function WNL. CT?of abdomen and pelvis showed ill-defined mass in the uncinate process of pancreas, concerning for pancreatitis versus pancreatic uncinate process neoplasm. EKG demonstrated normal sinus rhythm without significant ST elevations or depressions. Pt was treated with IVF, morphine, and ondansetron. Pt will be admitted to the hospital for treatment and further evaluation of intractable abdominal pain concerning for acute focal pancreatitis versus pancreatic neoplasm. Review of Systems 2 Review of Systems: Diffuse abdominal pain wrapping around to back x3 months, worse pessary days Nausea, no vomiting Chest pressure/squeezing Tenesmus Dark, loose stools Reduced appetite Denies shortness of breath No fever, chills PMFSH Medical History Rupture of left quadriceps tendon High cholesterol Hypertension Surgical History S/P left knee surgery (~2011) Social History Alcohol intake: current Alcohol intake frequency: does not drink Substance Use Type: Marijuana Current occupational status: unemployed Meds Allergies Allergy/AdvReac Type Severity Reaction Status Date / Time No Known Allergies Allergy Verified 02/25/24 09:23 Home Medications ?Medication ?Instructions ?Recorded ?Confirmed ?Last Taken ?Type atorvastatin 20 mg tablet 20 mg PO DAILY 11/12/20 Unknown History ferrous sulfate 300 mg (60 mg 300 mg PO BID 11/12/20 Unknown History iron)/5 mL oral liquid losartan 50 mg tablet 50 mg PO DAILY 11/12/20 Unknown History Physical Exam 2 Vital Signs and Narrative: Vital Signs: Last Vital Signs Temp 97.6 F 02/25/24 15:28 Pulse 77 02/25/24 15:28 Resp 18 02/25/24 15:28 BP 167/79 H 02/25/24 15:28 Pulse Ox 99 02/25/24 15:28 O2 Del Method Room Air 02/25/24 15:28 BMI result Body Mass Index 41.7 General: AOx3, no acute distress Resp: CTA bilaterally CVS: S1, S2, RRR GI: +BS, diffuse abd pain most prominent in LUQ Skin: Warm, dry Neuro: Cranial nerves II-XII grossly intact bilaterally. Motor grossly intact bilaterally Extremities: No edema Psych: Appropriate affect Results Labs 02/25/24 09:35 02/25/24 09:35 Labs: Laboratory Results - last 24 hr 02/25/24 09:35 MCV 77.4 L MCH 25.3 L MCHC 32.7 RDW 16.5 H Plt Count 296 MPV 9.7 Immature Gran % (Auto) 0.2 Neut % (Auto) 62.5 Lymph % (Auto) 25.1 [place] % (Auto) 9.1 Eos % (Auto) 2.7 Baso % (Auto) 0.4 Lymph # (Auto) 2.3 [place] # (Auto) 0.8 Eos # (Auto) 0.3 Baso # (Auto) 0.0 Abs Immat Gran (auto) 0.02 Absolute Neuts (auto) 5.8 Absolute Nucleated RBC 0.000 Nucleated RBC % (auto) 0.0 Anion Gap 12 Estim Creat Clear Calc 108.4 Estimated GFR > 60 Random Glucose 129 H Calcium 9.3 Total Bilirubin 0.6 Direct Bilirubin 0.2 AST 13 ALT 9 Alkaline Phosphatase 57 Total Protein 7.5 Albumin 4.1 Lipase 1530 H Imaging Radiologist's Impressions: Impressions Abdomen/Pelvis CT 02/25/24 12:51 IMPRESSION: Pancreatitis versus pancreatic uncinate process neoplasm correlate with clinical history and follow-up by MRI. Multiple small benign-appearing lesions in the liver most likely cysts or hemangiomas Small umbilical hernia Moderate size hiatal hernia Diverticulosis and lymph nodes in the mesentery Fleischner guidelines were followed. Assessment and Plan (1) Abdominal pain: Status: Inactive Plan Pt is a 68-year-old male with a PMH significant for HTN, HLD, and GERD who presents to the ED for evaluation of diffuse abdominal pain ongoing for the past 3 months but worsening over the past 3 days. Pt will be admitted to the hospital for treatment and further evaluation of intractable abdominal pain concerning for acute focal pancreatitis versus pancreatic neoplasm. Intractable abdominal pain Lipase 1530, up from [address] of abd/pelvis showing ill-defined mass of low-attenuation in uncinate process concerning for focal pancreatitis vs neoplasm NPO for now, advance diet as tolerated IVF: lactated ringer's @ 125 ml/hr Dilaudid 0.5 mg IV q4 prn for pain management Will treat with bowel rest, IVF, and analgesics GI consult Chest pain/pressure Pt reports episode of a squeezing sensation around his heart yesterday EKG without significant ischemic changes Will check serial troponins HTN Continue losartan HLD Continue statin GERD PPI Full Code Attending:?Dr. Brizuela DVT Prophylaxis: Lovenox Pt will require a hospitalization of at least two nights for treatment of?intractable abdominal pain concerning for focal pancreatitis versus neoplasm. Patient require bowel rest, IV fluids, IV analgesics, and specialist consultation with GI. Quality Stroke Does the patient have a stroke diagnosis?: No VTE Prior VTE?: No VTE Risk Level:: Medical - moderate - high VTE Device Contraindication: Treatment Not Indicated VTE Drug Contraindication: N/A - Med Ordered
[2024-02-25 17:46] VITALS: BP 139/76; PULSE 71; RESP 14; TEMP 36.3; O2SAT 98
[2024-02-25 17:57] LABS: Troponin-I High Sensitivity 4.1 ng/L (<3.5-35.0)
[2024-02-25 18:10] LABS: Cholesterol 126 mg/dL (<200); HDL Cholesterol 34 mg/dL (>40); LDL Cholesterol Calculated 73 mg/dL (<100); Triglycerides 98 mg/dL (<150)
--- NOTE | 2024-02-25 18:57 | PHA.MEDREC ---
Pharmacy Consult ? Medication Reconciliation Pharmacy has completed the medication reconciliation. Confirmed medications with patient. He states he is now taking his Atorvastatin 20mg tab BID now.
[2024-02-25] MEDS: Lactated Ringers 1,000 ML 125 ML IVCONT (19:29)
[2024-02-25] MEDS: HYDROmorphone HCl 1 MG/ML SYRINGE 0.5 MG IVPUSH (19:29)
[2024-02-25 20:49] VITALS: BMI 42.3
[2024-02-26] MEDS: HYDROmorphone HCl 1 MG/ML SYRINGE 0.5 MG IVPUSH ×4 (00:42→17:26)
[2024-02-26] MEDS: Lactated Ringers 1,000 ML 125 ML IVCONT ×3 (02:13→19:49)
[2024-02-26 03:24] VITALS: BP 158/75; PULSE 82; RESP 18; TEMP 36.3; O2SAT 99
--- NOTE | 2024-02-26 06:55 | PM.GICN ---
History of Present Illness Data of Consult Service Date: 02/26/24 Requesting physician: Violet Resendiz Primary Care Provider: Enrique Beckman MD HPI Reason for consult: panc lesion 68-year-old male with hx of HTN, HLD, and GERD who I am seeing for assessment for abdominal pain Patient normally follows with [facility] for his Gi care, just recently seen He has been having 3 months of sharp and stabbing, diffuse pain, radiating around to his back with the pain located on both sides of the umbilicus and epigastrium. He notes nausea but no vomiting, as well as decreased p.o. intake. pain is worse with food, relived by sleeping on the floor, weight has been stable, denies change in bowel habits or rectal bleeding. Pain got worse yesterday so he came to the hospital for assessment. He denies smoking or alcohol use. he had egd and colo 10/24-- noted to have large hiatal hernia, diverticulosis and hemorrhoids. Recent imaging 02/21 with 4.3 cm poorly enhancing lesion suggestive of pancreatic neoplasm versus focal pancreatitis Repeat imaging this admission with again ill-defined mass in the uncinate process of pancreas, concerning for pancreatitis versus pancreatic uncinate process neoplasm LABS: elevated lipase of 1530, \ No leukocytosis. No significant electrolyte abnormalities. Renal and hepatic function normal, mild anemia Review of Systems Review of Systems: Constitutional : + Weight loss, No Fever, No Chills ENT/Mouth : No sore throat, No Rhinorrhea Eyes: No Swelling, No Redness Cardiovascular : No Chest Pain, No SOB, No Edema Respiratory : No Cough, No Sputum, No Wheezing Gastrointestinal : see HPI Genitourinary : NO Dysuria, No Urinary Frequency, No Hematuria, No Urgency Musculoskeletal : + joint pain, No Myalgias, No Joint Swelling Skin : No Skin Lesions, No rash Neuro : No Weakness, No Numbness, No Dizziness, No Headache Psych : No Anxiety/Panic, No Depression Heme/Lymph: No Bruising, No Lymphadenopathy Endocrine : No Polyuria, No Polydipsia All other systems reviewed and are negative. [facility] Past Medical History Medical History Rupture of left quadriceps tendon High cholesterol Hypertension Family History Pertinent family history: no fh of panc ca Surgical History Surgical History S/P left knee surgery (~2011) Social History Social History Household Members: Spouse Housing: House Alcohol intake: current Alcohol intake frequency: does not drink Patient Tobacco Use Status: Never used Tobacco Second Hand Smoke Exposure: No Substance Use Type: Marijuana service: No Current occupational status: unemployed Meds Allergies Allergy/AdvReac Type Severity Reaction Status Date / Time No Known Allergies Allergy Verified 02/25/24 09:23 Active Medications: Current Medications Acetaminophen (Acetaminophen 325 Mg Tablet) 650 mg PO Q6H PRN PRN Reason: Pain, Mild (Pain Scale 1-3), fever or headache Benzonatate (Benzonatate 100 Mg Capsule) 100 mg PO TID PRN PRN Reason: Cough Calcium Carbonate (Calcium Carbonate 750 Mg Tab.Chew) 750 mg PO Q4H PRN PRN Reason: Heartburn Enoxaparin Sodium (Enoxaparin Sodium 40 Mg/0.4 Ml Syringe) 40 mg SUBCUT Q24H [facility] Last Admin: 02/25/24 19:30 Dose: Not Given Hydromorphone HCl (Hydromorphone Hcl 1 Mg/Ml Syringe) 0.5 mg IVPUSH Q4H PRN; Protocol PRN Reason: Pain, Severe (Pain Scale 7-10) Last Admin: 02/26/24 06:30 Dose: 0.5 mg Lactated Ringer's (Lr) 1,000 mls @ 125 mls/hr IVCONT .Q8H [facility] Last Admin: 02/26/24 02:13 Dose: 125 mls/hr Magnesium Hydroxide (Milk Of Magnesia 30 Ml Oral.Susp) 30 ml PO DAILY PRN PRN Reason: Constipation Melatonin (Melatonin 3 Mg Tablet) 6 mg PO BEDTIME PRN PRN Reason: Insomnia Ondansetron HCl (Ondansetron Hcl 4 Mg/2 Ml Vial) 4 mg IVPUSH Q8H PRN PRN Reason: Nausea and Vomiting Last Admin: 02/25/24 19:29 Dose: 4 mg Sodium Chloride (0.9 % Sodium Chloride Flush 3 Ml Syringe) 3 ml IVFLUSH QSHIFT [facility] Last Admin: 02/25/24 22:22 Dose: Not Given Home Medications ?Medication ?Instructions ?Recorded ?Confirmed ?Last Taken ?Type atorvastatin 20 mg tablet 20 mg PO DAILY 11/12/20 02/25/24 Unknown History acetaminophen 650 mg 1,300 mg PO Q6H PRN Pain 02/25/24 02/25/24 Unknown History tablet,extended release losartan 100 1 tab PO DAILY 02/25/24 02/25/24 02/25/24 09:00 History mg-hydrochlorothiazide 25 mg tablet Physical Exam Vital Signs: Vital Signs: Last Vital Signs Temp 97.3 F 02/26/24 03:24 Pulse 82 02/26/24 03:24 Resp 18 02/26/24 03:24 BP 158/75 H 02/26/24 03:24 Pulse Ox 99 02/26/24 03:24 O2 Del Method Room Air 02/26/24 03:24 BMI result Body Mass Index 42.3 EXAM: GENERAL: The patient is well developed and nontoxic. VITAL SIGNS:see workflow HEENT: Nonicteric sclerae, PERRLA, EOMI. Oropharynx clear. Moist mucous membranes. Conjunctivae appear well perfused. No thyroid mass. CHEST: Chest wall is nontender. HEART: Regular rate and rhythm without murmurs. LUNGS: Clear to auscultation bilaterally. ABDOMEN: Soft, positive bowel sounds, nontender, no organomegaly.no flank tenderness SKIN: No rash, no excessive bruising, petechiae, or purpura. NEUROLOGIC: Cranial nerves II-XII intact without motor/sensory deficit. Psych: normal affect Results Labs 02/26/24 08:10 02/26/24 08:10 Labs: Short CBC 02/25/24 Range/Units 09:35 WBC 9.3 (4.8-10.8) X10*3/uL Hgb 12.2 L (14.0-18.0) g/dl Hct 37.3 L (42.0-52.0) % Plt Count 296 (160-400) X10*3/uL BMP 02/25/24 09:35 Sodium 142 Potassium 3.4 Chloride 109 H Carbon Dioxide 24 BUN 15 Creatinine 1.03 Calcium 9.3 Liver Function 02/25/24 Range/Units 09:35 Total Bilirubin 0.6 (0.0-1.0) mg/dL Direct Bilirubin 0.2 (0.0-0.5) mg/dL AST 13 (5-37) U/L ALT 9 (0-40) U/L Alkaline Phosphatase 57 (39-117) U/L Albumin 4.1 (3.5-5.0) g/dL Imaging CT scan - abdomen: Attestation: I personally reviewed and interpreted this imaging study as follows: (swelling and irregularity of the pancreatic head, large hiatal hernia, liver cysts) Assessment and Plan (1) Acute pancreatitis: Status: Acute Plan 1/ Acute pancreatitis with lesion in head of pancreas, ddx: neoplasia, IPMN or other cystic lesion, autoimmune pancreatitis PLAN: 1/ MRI w/ and w/o contrast 2/ f/u with [facility] depending on MRI as may need EUS 3/ allow clears and advance diet as tolerated 4/ check ca 125 and ca 19-9 5/ check IgG4 6/ can give trial of trental 400 mg TID Procedures Date of Service Date of Service: 02/26/24
[2024-02-26 06:59] VITALS: BP 132/70; PULSE 85; RESP 17; TEMP 36.6; O2SAT 98
[2024-02-26 09:29] LABS: Hemoglobin 11.7 g/dl (14.0-18.0); Mean Corpuscular HGB Conc 32.5 g/dl (31.0-36.0); Mean Corpuscular Hemoglobin 25.4 pg (27.0-33.0); Mean Corpuscular Volume 78.3 fL (80.0-98.0); Mean Platelet Volume 10.6 fL (9.4-12.4); Platelet Count 285 X10*3/uL (160-400); Red Cell Distribution Width 16.6 % (11.0-16.0); White Blood Count 8.4 X10*3/uL (4.8-10.8)
[2024-02-26 09:44] LABS: Anion Gap 15 (12-20); Blood Urea Nitrogen 11 mg/dL (9-16); Calcium 8.9 mg/dL (8.4-10.2); Carbon Dioxide 25 mmol/L (22-29); Chloride 105 mmol/L (96-108); Creatinine Clr Calc Pharmacy 120.5; Estimated Glomerular Filt Rate > 60; Glucose Random 86 mg/dL (60-115); Potassium 3.6 mmol/L (3.3-5.1); Sodium 141 mmol/L (135-145)
[2024-02-26 10:08] LABS: Lipase 796 U/L (8-78)
--- NOTE | 2024-02-26 10:57 | HO.PM.IMPN ---
Subjective Subjective Date of Service: 02/26/24 Interval History: Being followed for abdominal pain/pancreatitis. Complaining of persistent abdominal pain with radiation to back associated with nausea, no fevers, no chills complaining of decreased by mouth intake due to pain, unintentional weight loss, denies abdominal trauma no recent viral infection, no new medications. Review of Systems All other system reviewed and are negative. Physical Exam Vital Signs: Vital Signs: Last Vital Signs Temp 98 F 02/26/24 06:59 Pulse 85 02/26/24 06:59 Resp 17 02/26/24 06:59 BP 132/70 02/26/24 06:59 Pulse Ox 98 02/26/24 06:59 O2 Del Method Room Air 02/26/24 06:59 BMI result Body Mass Index 42.3 Const: Other: General awake alert x3, in mild distress due to pain. Anicteric sclera Neck supple no JVD. CVS regular rate rhythm, Respiratory lungs clear to auscultation, no respiratory distress, no wheeze, no rhonchi. Gastrointestinal abdomen soft, midabdominal tenderness to palpation, bowel sounds audible, no guarding , no rigidity. Extremities no edema. Neuro non focal Skin no rash Psych appropriate affect Objective Data Active Medications Acetaminophen (Acetaminophen 325 Mg Tablet) 650 mg PO Q6H PRN PRN Reason: Pain, Mild (Pain Scale 1-3), fever or headache Benzonatate (Benzonatate 100 Mg Capsule) 100 mg PO TID PRN PRN Reason: Cough Calcium Carbonate (Calcium Carbonate 750 Mg Tab.Chew) 750 mg PO Q4H PRN PRN Reason: Heartburn Enoxaparin Sodium (Enoxaparin Sodium 40 Mg/0.4 Ml Syringe) 40 mg SUBCUT Q24H [facility] Last Admin: 02/25/24 19:30 Dose: Not Given Documented By: KYLEE Non-Admin Reason: Patient Refused Hydromorphone HCl (Hydromorphone Hcl 1 Mg/Ml Syringe) 0.5 mg IVPUSH Q4H PRN; Protocol PRN Reason: Pain, Severe (Pain Scale 7-10) Last Admin: 02/26/24 10:56 Dose: 0.5 mg Documented By: MALLIKA Lactated Ringer's (Lr) 1,000 mls @ 125 mls/hr IVCONT .Q8H [facility] Last Admin: 02/26/24 02:13 Dose: 125 mls/hr Documented By: NIECY Magnesium Hydroxide (Milk Of Magnesia 30 Ml Oral.Susp) 30 ml PO DAILY PRN PRN Reason: Constipation Melatonin (Melatonin 3 Mg Tablet) 6 mg PO BEDTIME PRN PRN Reason: Insomnia Omeprazole (Omeprazole 40 Mg Capsule.Dr) 40 mg PO BID@0630,1630 [facility] Ondansetron HCl (Ondansetron Hcl 4 Mg/2 Ml Vial) 4 mg IVPUSH Q8H PRN PRN Reason: Nausea and Vomiting Last Admin: 02/25/24 19:29 Dose: 4 mg Documented By: ARIE-ROSY Oxycodone HCl (Oxycodone Hcl Immed Release 5 Mg Tablet) 10 mg PO Q6H PRN PRN Reason: Pain, Moderate(Pain Scale 4-6) Sodium Chloride (0.9 % Sodium Chloride Flush 3 Ml Syringe) 3 ml IVFLUSH QSHIFT [facility] Last Admin: 02/26/24 08:00 Dose: Not Given Documented By: MALLIKA Non-Admin Reason: IV Running Labs 02/26/24 08:10 02/26/24 08:10 Labs: Laboratory Results - last 24 hr 02/25/24 02/26/24 09:35 08:10 MCV 78.3 L MCH 25.4 L MCHC 32.5 RDW 16.6 H Plt Count 285 MPV 10.6 Absolute Nucleated RBC 0.000 Nucleated RBC % (auto) 0.0 Anion Gap 15 Estim Creat Clear Calc 120.5 Estimated GFR > 60 Random Glucose 86 Calcium 8.9 Troponin I High Sens 4.1 Triglycerides 98 Cholesterol 126 LDL Cholesterol, Calc 73 HDL Cholesterol 34 L Lipase 796 H Assessment and Plan (1) Acute pancreatitis: Status: Acute Plan 68-year-old male with a PMH significant for HTN, HLD, and GERD who presents to the ED for evaluation of diffuse abdominal pain ongoing for the past 3 months but worsening over the past 3 days. Pt will be admitted to the hospital for treatment and further evaluation of intractable abdominal pain concerning for acute focal pancreatitis versus pancreatic neoplasm. Intractable abdominal pain likely due to acute pancreatitis will rule out pancreatic neoplasm Persistent abdominal pain with radiation to back. Question etiology of pancreatitis no history of alcohol abuse, normal LFTs, normal try glycerin no new medications no trauma or viral infection Lipase 1530, up from 75, [address] of abd/pelvis showing ill-defined mass of low-attenuation in uncinate process concerning for focal pancreatitis vs neoplasm Will continue IV fluid, IV Dilaudid and add by mouth oxycodone as needed, will place on clear liquid diet Repeat labs pending Obtain MRI abdomen Case discussed with GI Chest pain/pressure resolved, normal troponins EKG showed no acute ischemic changes, likely symptoms due to GERD, no further workup warranted at this time HTN Stable BP hold losartan HLD Hold statin GERD Continue PPI Morbid obesity recommend low-calorie diet and weight loss Full Code DVT Prophylaxis: Lovenox Pt will require a hospitalization of at least two nights for treatment of?intractable abdominal pain concerning for focal pancreatitis versus neoplasm. Patient require bowel rest, IV fluids, IV analgesics, and specialist consultation with GI. Quality Stroke Does the patient have a stroke diagnosis?: No VTE Prior VTE?: No VTE Risk Level:: Medical - moderate - high VTE Device Contraindication: Treatment Not Indicated VTE Drug Contraindication: N/A - Med Ordered
--- NOTE | 2024-02-26 11:01 | MHC.CM.PN ---
This documentation writer met w/ patient for CM assessment. A&O x3 able to answer questions appropriately. Lives @ home w/ , no services in the home. Reports car in parking lot. IMM 02/25. Reports HCP copy @ home. DCP: Home w/ no services, may be able to drive himself home.
[2024-02-26 15:09] VITALS: BP 142/78; PULSE 82; RESP 16; TEMP 37.1; O2SAT 97
[2024-02-26] MEDS: Omeprazole 40 MG CAPSULE.DR PO (15:59)
[2024-02-26] MEDS: gadobutroL 10 ML VIAL IVPUSH (17:05)
[2024-02-26] MEDS: Enoxaparin Sodium 40 MG/0.4 ML SYRINGE SUBCUT (17:30)
[2024-02-26 19:31] VITALS: BP 160/80; PULSE 74; RESP 16; TEMP 36.9; O2SAT 97
[2024-02-26] MEDS: Pentoxifylline ER 400 MG TABLET.ER PO (20:10)
[2024-02-26] MEDS: oxyCODONE HCl Immed Release 5 MG TABLET 10 MG PO (20:11)
[2024-02-26] MEDS: 0.9 % Sodium Chloride Flush 3 ML SYRINGE IVFLUSH (21:06)
[2024-02-26 21:11] VITALS: RESP 18
[2024-02-27] VITALS (7 sets, daily range): BP systolic 139–170; BP diastolic 70–92; PULSE 81–87; RESP 14–18; TEMP 36.1–37.1; O2SAT 96–97
[2024-02-27] MEDS: Lactated Ringers 1,000 ML 125 ML IVCONT (03:58)
[2024-02-27] MEDS: Omeprazole 40 MG CAPSULE.DR PO ×2 (06:17→16:12)
[2024-02-27 06:27] LABS: Hematocrit 33.9 % (42.0-52.0); Hemoglobin 11.3 g/dl (14.0-18.0); Mean Corpuscular HGB Conc 33.3 g/dl (31.0-36.0); Mean Corpuscular Hemoglobin 25.5 pg (27.0-33.0); Mean Corpuscular Volume 76.5 fL (80.0-98.0); Mean Platelet Volume 10.4 fL (9.4-12.4); Platelet Count 278 X10*3/uL (160-400); Red Blood Count 4.43 X10*6/uL (4.60-5.80); Red Cell Distribution Width 15.9 % (11.0-16.0); White Blood Count 7.2 X10*3/uL (4.8-10.8)
[2024-02-27] MEDS: HYDROmorphone HCl 1 MG/ML SYRINGE 0.5 MG IVPUSH ×2 (06:27→10:37)
[2024-02-27 06:38] LABS: Anion Gap 13 (12-20); Blood Urea Nitrogen 12 mg/dL (9-16); Calcium 8.9 mg/dL (8.4-10.2); Carbon Dioxide 22 mmol/L (22-29); Chloride 107 mmol/L (96-108); Creatinine Clr Calc Pharmacy 124.6; Estimated Glomerular Filt Rate > 60; Glucose Random 79 mg/dL (60-115); Potassium 3.2 mmol/L (3.3-5.1); Sodium 139 mmol/L (135-145)
[2024-02-27] MEDS: Pentoxifylline ER 400 MG TABLET.ER PO ×3 (10:12→20:24)
[2024-02-27] MEDS: KCl 20 mEq in 5 % Dex/Lact Rin 20 MEQ/1,000 ML IV.SOLN 100 MEQ IVCONT (10:12)
--- NOTE | 2024-02-27 13:24 | HO.PM.IMPN ---
Subjective Subjective Date of Service: 02/27/24 Interval History: Feeling better this morning less abdominal pain, no nausea, no vomiting no diarrhea, no fevers no chills no other acute events overnight. Review of Systems All other system reviewed and are negative. Physical Exam Vital Signs: Vital Signs: Last Vital Signs Temp 97.8 F 02/27/24 07:25 Pulse 83 02/27/24 07:25 Resp 18 02/27/24 10:37 BP 139/74 02/27/24 07:25 Pulse Ox 96 02/27/24 07:25 O2 Del Method Room Air 02/27/24 07:25 BMI result Body Mass Index 42.3 Const: Other: General awake alert x3, in mild distress due to pain. Anicteric sclera Neck supple no JVD. CVS regular rate rhythm, Respiratory lungs clear to auscultation, no respiratory distress, no wheeze, no rhonchi. Gastrointestinal abdomen soft, mild mid abdominal tenderness to palpation, bowel sounds audible, no guarding , no rigidity. Extremities no edema. Neuro non focal Skin no rash Psych appropriate affect Objective Data Active Medications Acetaminophen (Acetaminophen 325 Mg Tablet) 650 mg PO Q6H PRN PRN Reason: Pain, Mild (Pain Scale 1-3), fever or headache Benzonatate (Benzonatate 100 Mg Capsule) 100 mg PO TID PRN PRN Reason: Cough Calcium Carbonate (Calcium Carbonate 750 Mg Tab.Chew) 750 mg PO Q4H PRN PRN Reason: Heartburn Enoxaparin Sodium (Enoxaparin Sodium 40 Mg/0.4 Ml Syringe) 40 mg SUBCUT Q24H [facility] Last Admin: 02/26/24 17:30 Dose: 40 mg Documented By: GRAZIC Hydromorphone HCl (Hydromorphone Hcl 1 Mg/Ml Syringe) 0.5 mg IVPUSH Q4H PRN; Protocol PRN Reason: Pain, Severe (Pain Scale 7-10) Last Admin: 02/27/24 10:37 Dose: 0.5 mg Documented By: TIENEMA Potassium Cl/Dextrose/Lact Ringer's (Kcl 20 Meq In 5 % Dex/Lact Rin) 20 meq in 1,000 mls @ 100 mls/hr IVCONT .Q10H [facility] Last Admin: 02/27/24 10:12 Dose: 100 mls/hr Documented By: HO.COTEMA Magnesium Hydroxide (Milk Of Magnesia 30 Ml Oral.Susp) 30 ml PO DAILY PRN PRN Reason: Constipation Melatonin (Melatonin 3 Mg Tablet) 6 mg PO BEDTIME PRN PRN Reason: Insomnia Omeprazole (Omeprazole 40 Mg Capsule.Dr) 40 mg PO BID@0630,1630 [facility] Last Admin: 02/27/24 06:17 Dose: 40 mg Documented By: JELLY Ondansetron HCl (Ondansetron Hcl 4 Mg/2 Ml Vial) 4 mg IVPUSH Q8H PRN PRN Reason: Nausea and Vomiting Last Admin: 02/25/24 19:29 Dose: 4 mg Documented By: N-ROSY Oxycodone HCl (Oxycodone Hcl Immed Release 5 Mg Tablet) 10 mg PO Q6H PRN PRN Reason: Pain, Moderate(Pain Scale 4-6) Last Admin: 02/26/24 20:11 Dose: 10 mg Documented By: JELLY Pentoxifylline (Pentoxifylline Er 400 Mg Tablet.Er) 400 mg PO TID [facility] Last Admin: 02/27/24 10:12 Dose: 400 mg Documented By: NOE Sodium Chloride (0.9 % Sodium Chloride Flush 3 Ml Syringe) 3 ml IVFLUSH QSHIFT [facility] Last Admin: 02/27/24 07:47 Dose: Not Given Documented By: NOE Non-Admin Reason: IV Running Labs 02/27/24 05:48 02/27/24 05:48 Labs: Laboratory Results - last 24 hr 02/27/24 05:48 MCV 76.5 L MCH 25.5 L MCHC 33.3 RDW 15.9 Plt Count 278 MPV 10.4 Absolute Nucleated RBC 0.000 Nucleated RBC % (auto) 0.0 Anion Gap 13 Estim Creat Clear Calc 124.6 Estimated GFR > 60 Random Glucose 79 Calcium 8.9 Assessment and Plan (1) Acute pancreatitis: Status: Acute Plan 68-year-old male with a PMH significant for HTN, HLD, and GERD who presents to the ED for evaluation of diffuse abdominal pain ongoing for the past 3 months but worsening over the past 3 days. Pt will be admitted to the hospital for treatment and further evaluation of intractable abdominal pain concerning for acute focal pancreatitis versus pancreatic neoplasm. Intractable abdominal pain likely due to acute pancreatitis will rule out pancreatic neoplasm Abdominal pain improving, no acute events overnight. no etiology of pancreatitis no history of alcohol abuse, normal LFTs, normal try glycerin no new medications no trauma or viral infection Lipase 1530, repeat lipase 796 CT of abd/pelvis showing ill-defined mass of low-attenuation in uncinate process concerning for focal pancreatitis vs neoplasm Abdominal MRI showed masslike lesion in the uncinate process of the pancreas measuring 3.1 x 4.6 cm in AP and transverse dimensions. The finding is concerning for pancreatic neoplasm. Other differential possibility may include paraduodenal/groove pancreatitis, correlation with tissue sampling recommended Will place on clear liquid diet and gradually advanced, continue IV fluid, wean IV Dilaudid Will recommend follow-up at [facility] for EUS IgG4, CA 125 and CA 19 9 pending Seen by GI patient placed on Trental 400 t.i.d. Mild hypokalemia will replete and follow. Chest pain/pressure resolved, normal troponins EKG showed no acute ischemic changes, likely symptoms due to GERD, sliding hiatal hernia, no further workup warranted at this time HTN on losartan and hydrochlorothiazide 100/25, will resume losartan follow BP HLD resume statin GERD Continue PPI Morbid obesity recommend low-calorie diet and weight loss Full Code DVT Prophylaxis: Lovenox Pt will require a hospitalization of at least two nights for treatment of?intractable abdominal pain concerning for focal pancreatitis versus neoplasm. Patient require bowel rest, IV fluids, IV analgesics, and specialist consultation with GI. Quality Stroke Does the patient have a stroke diagnosis?: No VTE Prior VTE?: No VTE Risk Level:: Medical - moderate - high VTE Device Contraindication: Treatment Not Indicated VTE Drug Contraindication: N/A - Med Ordered
[2024-02-27] MEDS: Losartan Potassium 50 MG TABLET PO (13:58)
[2024-02-27] MEDS: Potassium Chloride ER 20 MEQ TAB.ER.PRT PO (13:58)
[2024-02-27] MEDS: oxyCODONE HCl Immed Release 5 MG TABLET 10 MG PO ×2 (13:58→23:49)
[2024-02-27] MEDS: Enoxaparin Sodium 40 MG/0.4 ML SYRINGE SUBCUT (17:22)
[2024-02-27] MEDS: KCl 20 mEq in 5 % Dex/Lact Rin 20 MEQ/1,000 ML IV.SOLN 75 MEQ IVCONT (22:14)
[2024-02-27] MEDS: 0.9 % Sodium Chloride Flush 3 ML SYRINGE IVFLUSH (22:14)
--- NOTE | 2024-02-27 23:51 | PM.GIPN ---
Subjective Subjective Date of Service: 02/27/24 Interval History: appetite poor, has satiety nausea ongoing pain mri with panc head mass and compression effect on duodenum Critical Care Time (minutes): 0 Physical Exam Vital Signs: Vital Signs: Last Vital Signs Temp 98.7 F 02/27/24 20:00 Pulse 87 02/27/24 20:00 Resp 18 02/27/24 20:00 BP 169/83 H 02/27/24 21:40 Pulse Ox 97 02/27/24 20:00 O2 Del Method Room Air 02/27/24 20:00 BMI result Body Mass Index 42.3 EXAM: GENERAL: The patient is well developed and nontoxic. tired and uncomfortable VITAL SIGNS:see workflow HEENT: Nonicteric sclerae, PERRLA, EOMI. Oropharynx clear. Moist mucous membranes. Conjunctivae appear well perfused. No thyroid mass. CHEST: Chest wall is nontender. HEART: Regular rate and rhythm without murmurs. LUNGS: Clear to auscultation bilaterally. ABDOMEN: Soft, positive bowel sounds, nontender, no organomegaly.no flank tenderness SKIN: No rash, no excessive bruising, petechiae, or purpura. NEUROLOGIC: Cranial nerves II-XII intact without motor/sensory deficit. Psych: normal affect Objective Data Labs 02/27/24 05:48 02/27/24 05:48 Labs: Laboratory Results - last 24 hr 02/27/24 05:48 WBC 7.2 RBC 4.43 L Hgb 11.3 L Hct 33.9 L MCV 76.5 L MCH 25.5 L MCHC 33.3 RDW 15.9 Plt Count 278 MPV 10.4 Absolute Nucleated RBC 0.000 Nucleated RBC % (auto) 0.0 Sodium 139 Potassium 3.2 L Chloride 107 Carbon Dioxide 22 Anion Gap 13 BUN 12 Creatinine 0.90 Estim Creat Clear Calc 124.6 Estimated GFR > 60 Random Glucose 79 Calcium 8.9 Imaging MRI - abdomen: Attestation: I personally reviewed and interpreted this imaging study as follows: (mass head of pancreas, compression effect and some stranding) Procedures Date of Service Date of Service: 02/27/24 Progress Note: A&P Assessment and plan (1) Acute pancreatitis: Status: Acute Assessment and Plan: 1/ Acute pancreatitis due to panc mass, also pressure effect on duodenum, might be causing pain PLAN: 1/ If ongoing pain then refer to tertiary center like [facility] 2/ if controlled sx [facility], I asked my office to fax over my notes and MRI to Dr Leger for consideration of urgent EUS and bx Time Spent With Patient Time: Total time managing care of this patient today ____ minutes. Quality Stroke Does the patient have a stroke diagnosis?: No VTE Prior VTE?: No VTE Risk Level:: Medical - moderate - high VTE Device Contraindication: Treatment Not Indicated VTE Drug Contraindication: N/A - Med Ordered
[2024-02-28] VITALS (7 sets, daily range): BP systolic 150–166; BP diastolic 72–88; PULSE 75–86; RESP 14–18; TEMP 36.2–37.1; O2SAT 94–98
[2024-02-28] MEDS: HYDROmorphone HCl 1 MG/ML SYRINGE 0.5 MG IVPUSH ×2 (01:18→19:37)
[2024-02-28] MEDS: Omeprazole 40 MG CAPSULE.DR PO ×2 (05:49→17:32)
[2024-02-28 06:48] LABS: Anion Gap 14 (12-20); Blood Urea Nitrogen 10 mg/dL (9-16); Calcium 8.8 mg/dL (8.4-10.2); Carbon Dioxide 22 mmol/L (22-29); Chloride 109 mmol/L (96-108); Creatinine Clr Calc Pharmacy 123.2; Estimated Glomerular Filt Rate > 60; Glucose Random 125 mg/dL (60-115); Potassium 3.5 mmol/L (3.3-5.1); Sodium 141 mmol/L (135-145)
[2024-02-28 07:06] LABS: Lipase 833 U/L (8-78)
[2024-02-28 08:03] LABS: Iron 31 mcg/dL (45-160); Percent Iron Saturation 18 % (15-50); Total Iron Binding Capacity 175 mcg/dL (228-428); Unsaturated Iron Binding 144 ug/dL
[2024-02-28] MEDS: Losartan Potassium 50 MG TABLET PO (08:32)
[2024-02-28] MEDS: 0.9 % Sodium Chloride Flush 3 ML SYRINGE IVFLUSH ×3 (08:32→20:42)
[2024-02-28] MEDS: Pentoxifylline ER 400 MG TABLET.ER PO ×3 (08:32→20:42)
[2024-02-28] MEDS: oxyCODONE HCl Immed Release 5 MG TABLET 10 MG PO ×2 (08:38→16:12)
--- NOTE | 2024-02-28 15:40 | HO.PM.IMPN ---
Subjective Subjective Date of Service: 02/28/24 Interval History: Being followed for elevated lipase and pancreatic mass. Tolerating diet, intermittent mid abdominal pain, and nausea. No fevers, no chills no other acute issues. Review of Systems All other system reviewed and are negative. Physical Exam Vital Signs: Vital Signs: Last Vital Signs Temp 98.6 F 02/28/24 15:19 Pulse 75 02/28/24 15:19 Resp 18 02/28/24 15:19 BP 150/88 H 02/28/24 15:19 Pulse Ox 97 02/28/24 15:19 O2 Del Method Room Air 02/28/24 15:19 BMI result Body Mass Index 42.3 Const: Other: General awake alert x3, in mild distress due to pain. Anicteric sclera Neck supple no JVD. CVS regular rate rhythm, Respiratory lungs clear to auscultation, no respiratory distress, no wheeze, no rhonchi. Gastrointestinal abdomen soft, mild mid abdominal tenderness to palpation, bowel sounds audible, no guarding , no rigidity. Extremities no edema. Neuro non focal Skin no rash Psych appropriate affect Objective Data Active Medications Acetaminophen (Acetaminophen 325 Mg Tablet) 650 mg PO Q6H PRN PRN Reason: Pain, Mild (Pain Scale 1-3), fever or headache Benzonatate (Benzonatate 100 Mg Capsule) 100 mg PO TID PRN PRN Reason: Cough Calcium Carbonate (Calcium Carbonate 750 Mg Tab.Chew) 750 mg PO Q4H PRN PRN Reason: Heartburn Enoxaparin Sodium (Enoxaparin Sodium 40 Mg/0.4 Ml Syringe) 40 mg SUBCUT Q24H [facility] Last Admin: 02/27/24 17:22 Dose: 40 mg Documented By: LAURIE Hydromorphone HCl (Hydromorphone Hcl 1 Mg/Ml Syringe) 0.5 mg IVPUSH Q4H PRN; Protocol PRN Reason: Pain, Severe (Pain Scale 7-10) Last Admin: 02/28/24 01:18 Dose: 0.5 mg Documented By: JELLY Losartan Potassium (Losartan Potassium 50 Mg Tablet) 50 mg PO DAILY [facility]; Protocol Last Admin: 02/28/24 08:32 Dose: 50 mg Documented By: JOSE Magnesium Hydroxide (Milk Of Magnesia 30 Ml Oral.Susp) 30 ml PO DAILY PRN PRN Reason: Constipation Melatonin (Melatonin 3 Mg Tablet) 6 mg PO BEDTIME PRN PRN Reason: Insomnia Omeprazole (Omeprazole 40 Mg Capsule.Dr) 40 mg PO BID@0630,1630 [facility] Last Admin: 02/28/24 05:49 Dose: 40 mg Documented By: JELLY Ondansetron HCl (Ondansetron Hcl 4 Mg/2 Ml Vial) 4 mg IVPUSH Q8H PRN PRN Reason: Nausea and Vomiting Last Admin: 02/25/24 19:29 Dose: 4 mg Documented By: KYLEE Oxycodone HCl (Oxycodone Hcl Immed Release 5 Mg Tablet) 10 mg PO Q6H PRN PRN Reason: Pain, Moderate(Pain Scale 4-6) Last Admin: 02/28/24 08:38 Dose: 10 mg Documented By: JOSE Pentoxifylline (Pentoxifylline Er 400 Mg Tablet.Er) 400 mg PO TID [facility] Last Admin: 02/28/24 08:32 Dose: 400 mg Documented By: JOSE Sodium Chloride (0.9 % Sodium Chloride Flush 3 Ml Syringe) 3 ml IVFLUSH QSHIFT [facility] Last Admin: 02/28/24 08:32 Dose: 3 ml Documented By: JOSE Labs 02/27/24 05:48 02/28/24 05:32 Labs: Laboratory Results - last 24 hr 02/28/24 05:32 Hold Purple Top SEE NOTE Anion Gap 14 Estim Creat Clear Calc 123.2 Estimated GFR > 60 Random Glucose 125 H Calcium 8.8 Iron 31 L TIBC 175 L % Saturation 18 Unsat Iron Binding 144 Lipase 833 H Assessment and Plan (1) Acute pancreatitis: Status: Acute Plan 68-year-old male with a PMH significant for HTN, HLD, and GERD who presents to the ED for evaluation of diffuse abdominal pain ongoing for the past 3 months but worsening over the past 3 days. Pt will be admitted to the hospital for treatment and further evaluation of intractable abdominal pain concerning for acute focal pancreatitis versus pancreatic neoplasm. Abdominal pain likely due to acute pancreatitis related to pancreatic mass Intermittent abdominal pain/early satiety no other etiology of pancreatitis no history of alcohol abuse, normal LFTs, normal tryglyceride, no new medications no trauma or viral infection Lipase 1530, repeat lipase >800 CT of abd/pelvis showing ill-defined mass of low-attenuation in uncinate process concerning for focal pancreatitis vs neoplasm Abdominal MRI showed masslike lesion in the uncinate process of the pancreas measuring 3.1 x 4.6 cm in AP and transverse dimensions. The finding is concerning for pancreatic neoplasm. Other differential possibility may include paraduodenal/groove pancreatitis, correlation with tissue sampling recommended,There is mass effect over the transverse portion of the duodenum. tolerating diet low-fat, DC IV fluids IgG4, CA 125 and CA 19 9 pending Being followed by Dr. Hurtado he recommend to transfer to tertiary center like [facility] for ongoing pain but since patient has no intractable pain and tolerating diet, he can proceed with outpatient endoscopy and biopsy. Since pain is controlled with narcotics he can have outpatient follow-up with [facility] Dr. Hurtado office will fax notes and MRI to Dr. Del Real for consideration of urgent EUS and biopsy tomorrow. Patient has been evaluated recently at [facility] does not recall name of GI specialist/he does have a primary care physician from [facility] Dr. Enrique Kurtz. Mild hypokalemia repleted Chest pain/pressure resolved, normal troponins EKG showed no acute ischemic changes, likely symptoms due to GERD, sliding hiatal hernia, no further workup warranted at this time HTN continue losartan 100 mg home dose hold hydrochlorothiazide 25 mg HLD resume statin GERD Continue PPI Morbid obesity recommend low-calorie diet and weight loss Full Code DVT Prophylaxis: Lovenox Pt. will require continued inpatient hospitalization for intermittent abdominal pain related to pancreatitis /pancreatic mass advancing diet on IV analgesics. Quality Stroke Does the patient have a stroke diagnosis?: No VTE Prior VTE?: No VTE Risk Level:: Medical - moderate - high VTE Device Contraindication: Treatment Not Indicated VTE Drug Contraindication: N/A - Med Ordered
[2024-02-28] MEDS: Enoxaparin Sodium 40 MG/0.4 ML SYRINGE SUBCUT (17:32)
[2024-02-29] MEDS: HYDROmorphone HCl 1 MG/ML SYRINGE 0.5 MG IVPUSH ×2 (01:26→08:58)
[2024-02-29] MEDS: Calcium Carbonate 750 MG TAB.CHEW PO (01:30)
[2024-02-29 02:55] VITALS: BP 185/90; PULSE 76; RESP 18; TEMP 36.2; O2SAT 100
[2024-02-29] MEDS: HYDROmorphone HCl 0.5 MG/0.5 ML SYRINGE IVPUSH (04:57)
[2024-02-29] MEDS: Omeprazole 40 MG CAPSULE.DR PO ×2 (04:59→17:25)
[2024-02-29 05:40] VITALS: BP 160/82
[2024-02-29] MEDS: oxyCODONE HCl Immed Release 5 MG TABLET 10 MG PO ×2 (07:02→14:53)
[2024-02-29] MEDS: Losartan Potassium 50 MG TABLET PO (07:02)
[2024-02-29] MEDS: 0.9 % Sodium Chloride Flush 3 ML SYRINGE IVFLUSH (07:02)
[2024-02-29] MEDS: Pentoxifylline ER 400 MG TABLET.ER PO ×2 (07:02→14:53)
[2024-02-29 07:50] VITALS: BP 149/76; PULSE 72; RESP 14; TEMP 36.7; O2SAT 96
--- NOTE | 2024-02-29 07:54 | ECG_ITS ---
Test Reason : chest tightness Blood Pressure : / mmHG Vent. Rate : 074 BPM Atrial Rate : 074 BPM P-R Int : 148 ms QRS Dur : 088 ms QT Int : 402 ms P-R-T Axes : 067 009 019 degrees QTc Int : 446 ms Normal sinus rhythm Normal ECG When compared with ECG of 04-FEB-2024 14:20, No significant change was found Referred By: Jamila Nova Electronically Signed By:GINGER MILLER
[2024-02-29 09:22] LABS: Hematocrit 35.8 % (42.0-52.0); Hemoglobin 11.5 g/dl (14.0-18.0); Mean Corpuscular HGB Conc 32.1 g/dl (31.0-36.0); Mean Corpuscular Hemoglobin 24.9 pg (27.0-33.0); Mean Corpuscular Volume 77.5 fL (80.0-98.0); Mean Platelet Volume 10.6 fL (9.4-12.4); Platelet Count 311 X10*3/uL (160-400); Red Blood Count 4.62 X10*6/uL (4.60-5.80); Red Cell Distribution Width 15.9 % (11.0-16.0); White Blood Count 7.6 X10*3/uL (4.8-10.8)
[2024-02-29 09:35] LABS: Troponin-I High Sensitivity 4.1 ng/L (<3.5-35.0)
[2024-02-29 09:41] LABS: Alanine Aminotransferase 11 U/L (0-40); Albumin Level 3.7 g/dL (3.5-5.0); Alkaline Phosphatase 57 U/L (39-117); Anion Gap 12 (12-20); Aspartate Amino Transferase 18 U/L (5-37); Bilirubin Total 0.7 mg/dL (0.0-1.0); Blood Urea Nitrogen 7 mg/dL (9-16); Calcium 9.5 mg/dL (8.4-10.2); Carbon Dioxide 24 mmol/L (22-29); Chloride 107 mmol/L (96-108); Creatinine Clr Calc Pharmacy 114.4; Estimated Glomerular Filt Rate > 60; Glucose Random 100 mg/dL (60-115); Potassium 3.5 mmol/L (3.3-5.1); Sodium 139 mmol/L (135-145); Total Protein 7.1 g/dL (6.5-8.0)
[2024-02-29 09:47] LABS: Lipase 895 U/L (8-78)
[2024-02-29] MEDS: Lactated Ringers 1,000 ML 125 ML IVCONT (11:52)
--- NOTE | 2024-02-29 12:04 | MHC.CM.PN ---
PER MD ROUNDS PATIENT NOT MEDICALLY CLEARED FOR DC. PER POTENTIAL XFER TO A HOSPITAL IN [place]. REQUESTED THAT THIS CM CONTACT [facility] RE: PREFERRED HOSPITAL. PER FRACISCO @ [facility], THEY DO NOT HAVE A PREFERENCE. AWARE. CM WILL CONTINUE TO FOLLOW.
[2024-02-29 12:35] LABS: Troponin-I High Sensitivity 4.6 ng/L (<3.5-35.0)
[2024-02-29 13:00] LABS: Lactate Dehydrogenase 187 U/L (118-273)
[2024-02-29] MEDS: HYDROmorphone HCl 1 MG/ML SYRINGE 0.75 MG IVPUSH ×2 (13:02→17:34)
--- NOTE | 2024-02-29 13:36 | HO.PM.IMPN ---
Subjective Subjective Date of Service: 02/29/24 Interval History: c/o severe epigastric/periumbilical pain mild chest burning from heartburn unable to tolerate solids Review of Systems Review of Systems: Yes all other systems are reviewed and are negative Physical Exam Vital Signs: Vital Signs: Last Vital Signs Temp 98.0 F 02/29/24 07:50 Pulse 72 02/29/24 07:50 Resp 14 02/29/24 07:50 BP 149/76 H 02/29/24 07:50 Pulse Ox 96 02/29/24 07:50 O2 Del Method Room Air 02/29/24 07:50 BMI result Body Mass Index 42.3 Gen: in acute pain HEENT: sclera anicteric, moist mucus membranes Neck: supple Lungs: clear to auscultation bilaterally Heart: regular rate and rhythm, no murmurs Abd: soft, epigastric/periumbilical tenderness Ext: no edema Skin: warm/well-perfused Neuro: alert and oriented x3, no focal findings Psych: appropriate affect Objective Data Active Medications Acetaminophen (Acetaminophen 325 Mg Tablet) 650 mg PO Q6H PRN PRN Reason: Pain, Mild (Pain Scale 1-3), fever or headache Benzonatate (Benzonatate 100 Mg Capsule) 100 mg PO TID PRN PRN Reason: Cough Calcium Carbonate (Calcium Carbonate 750 Mg Tab.Chew) 750 mg PO Q4H PRN PRN Reason: Heartburn Last Admin: 02/29/24 01:30 Dose: 750 mg Documented By: SHA Enoxaparin Sodium (Enoxaparin Sodium 40 Mg/0.4 Ml Syringe) 40 mg SUBCUT Q24H [facility] Last Admin: 02/28/24 17:32 Dose: 40 mg Documented By: JOSE Hydromorphone HCl (Hydromorphone Hcl 1 Mg/Ml Syringe) 0.75 mg IVPUSH Q4H PRN; Protocol PRN Reason: Pain, Severe (Pain Scale 7-10) Last Admin: 02/29/24 13:02 Dose: 0.75 mg Documented By: WENDIE Lactated Ringer's (Lr) 1,000 mls @ 125 mls/hr IVCONT .Q8H [facility] Last Admin: 02/29/24 11:52 Dose: 125 mls/hr Documented By: HO.SWEITZM Losartan Potassium (Losartan Potassium 50 Mg Tablet) 50 mg PO DAILY [facility]; Protocol Last Admin: 02/29/24 07:02 Dose: 50 mg Documented By: CJ Magnesium Hydroxide (Milk Of Magnesia 30 Ml Oral.Susp) 30 ml PO DAILY PRN PRN Reason: Constipation Melatonin (Melatonin 3 Mg Tablet) 6 mg PO BEDTIME PRN PRN Reason: Insomnia Omeprazole (Omeprazole 40 Mg Capsule.Dr) 40 mg PO BID@0630,1630 [facility] Last Admin: 02/29/24 04:59 Dose: 40 mg Documented By: SHA Ondansetron HCl (Ondansetron Hcl 4 Mg/2 Ml Vial) 4 mg IVPUSH Q8H PRN PRN Reason: Nausea and Vomiting Last Admin: 02/25/24 19:29 Dose: 4 mg Documented By: ANANDROSY Oxycodone HCl (Oxycodone Hcl Immed Release 5 Mg Tablet) 10 mg PO Q6H PRN PRN Reason: Pain, Moderate(Pain Scale 4-6) Last Admin: 02/29/24 07:02 Dose: 10 mg Documented By: CJ Pentoxifylline (Pentoxifylline Er 400 Mg Tablet.Er) 400 mg PO TID [facility] Last Admin: 02/29/24 07:02 Dose: 400 mg Documented By: CJ Sodium Chloride (0.9 % Sodium Chloride Flush 3 Ml Syringe) 3 ml IVFLUSH QSHIFT [facility] Last Admin: 02/29/24 07:02 Dose: 3 ml Documented By: CJ Labs 02/29/24 08:54 02/29/24 08:54 Labs: Laboratory Results - last 24 hr 02/29/24 02/29/24 08:54 11:53 MCV 77.5 L MCH 24.9 L MCHC 32.1 RDW 15.9 Plt Count 311 MPV 10.6 Absolute Nucleated RBC 0.000 Nucleated RBC % (auto) 0.0 Anion Gap 12 Estim Creat Clear Calc 114.4 Estimated GFR > 60 Random Glucose 100 Calcium 9.5 D Total Bilirubin 0.7 AST 18 ALT 11 Alkaline Phosphatase 57 Lactate Dehydrogenase 187 Troponin I High Sens 4.1 4.6 Total Protein 7.1 Albumin 3.7 Lipase 895 H Assessment and Plan (1) Acute pancreatitis: Status: Acute Plan d5 68yo M with recently diagnosed pancreatic mass presenting with 3 mo of worsening abd pain and admitted with 1st episode of pancreatitis acute pancreatitis due to uncinate process mass - NPO, IV fluids, IV hydromorphone prn - discussed with GI Dr Peña- recommend transfer to tertiary care center due to intractable pain, PO intolerance; will need EUS/biopsy and further treatment based on results; continue Trental hypoK - repleted GERD - PPI HTN - continue losartan morbid obesity - diet/exercise counseling VTE ppx - LMWH dispo - TBD In my clinical judgment, the patient requires continued inpatient hospitalization for the following reasons: IV fluids, IV analgesics; due to intractable abd pain, may need tertiary care transfer Total time managing care of this patient today: 45 minutes. Quality Stroke Does the patient have a stroke diagnosis?: No VTE Prior VTE?: No VTE Risk Level:: Medical - moderate - high VTE Device Contraindication: Treatment Not Indicated VTE Drug Contraindication: N/A - Med Ordered
[2024-02-29 15:42] VITALS: BP 160/65; PULSE 75; RESP 20; TEMP 36.7; O2SAT 96
--- NOTE | 2024-02-29 16:42 | P.DS_ITS ---
DS: Providers Provider Date of Service: 02/29/24 Date of admission: 02/25/24 17:46 Date of discharge: 02/29/24 Primary care physician: Enrique Beckman MD Consults: 02/25/24 17:51 Consult to Gastroenterology Routine Consulting Provider: Bennett Peña Reason for consultation: ?focal pancreatitis vs pancreatic neoplasm DS: Diagnosis Discharge Diagnosis (1) Acute pancreatitis: Status: Acute (2) Pancreatic mass: Status: Acute DS: Summary Hospital Course Hospital Course: From the history and physical by the admitting hospitalist, NATALI Deluna, 02/25/24: Pt is a 68-year-old male with a PMH significant for HTN, HLD, and GERD who presents to the ED for evaluation of diffuse abdominal pain ongoing for the past 3 months but worsening over the past 3 days. Patient reports he has been sleeping on the floor since November due to ?excruciating? abdominal pain. Describes pain as sharp and stabbing, diffuse, and wrapping around to his back. Initially presented in November to [facility] for abdominal pain and black stools. States he was kept overnight and transfused 1 unit blood, though no source GI bleeding was apparently found. Patient follows with GI at [facility] and states he recently had a negative EGD and colonoscopy, though it is not clear if it was at [facility] or [facility] during his November hospitalization. Patient presented to the ED here 3 weeks prior on 02/04/2024 with abdominal pain. Workup at that time included CT of abdomen and pelvis that showed a 4.3 cm poorly enhancing lesion suggestive of pancreatic neoplasm versus focal pancreatitis. Labs at that time were unremarkable, including normal lipase of 75. Patient was discharged home to follow up with GI, which he did on Thursday. States nothing was done during the appointment and they could not access disc with CT imaging. Presents today as abdominal pain has worsened significantly since Thursday. Has experienced some nausea but no vomiting, as well as decreased p.o. intake. Also states that yesterday had some chest pressure that felt like a ?squeezing sensation? around his heart. No longer experiencing black stools, but stools still dark-colored and loose. Endorses tenesmus. No shortness of breath or difficulty breathing. No fever, chills. Patient denies history of significant alcohol use. No smoking or illicit substance use. In the ED pt was hypertensive up to 167/79, vitals otherwise stable and WNL. Labs were significant for H&H of 12.2/37.3 (down from 13 0.5/41.3 on 02/04/2024) and elevated lipase of 1530, otherwise grossly unremarkable and baseline for patient. No leukocytosis. No significant electrolyte abnormalities. Renal and hepatic function WNL. CT?of abdomen and pelvis showed ill-defined mass in the uncinate process of pancreas, concerning for pancreatitis versus pancreatic uncinate process neoplasm. EKG demonstrated normal sinus rhythm without significant ST elevations or depressions. Pt was treated with IVF, morphine, and ondansetron. Pt will be admitted to the hospital for treatment and further evaluation of intractable abdominal pain concerning for acute focal pancreatitis versus pancreatic neoplasm. 68yo M with recently diagnosed pancreatic mass presenting with 3 mo of worsening abd pain and admitted with 1st episode of pancreatitis. He was treated with bowel rest + IV/PO opioids + IV fluids. Unfortunately, he did not tolerate PO challenge. Dr Peña from GI was consulted. He recommended transfer to tertiary care center due to intractable pain from mechanical cause of pancreatitis with possible duodenal compression. He will need EUS/biopsy and further treatment based on results. I discussed the case with GI Dr Alvarez from [facility] and the patient was accepted by the hospitalist service there for further specialty care. Time Attestation Discharge Coordination Time (in mins): 55 Quality: Safe Use of Opioids Does Pt have an Active Cancer Diagnosis on the Problem List?: No Quality: Stroke Does the patient have a stroke diagnosis?: No Physical Exam Vital Signs: Vital Signs: Last Vital Signs Temp 98.1 F 02/29/24 15:42 Pulse 75 02/29/24 15:42 Resp 20 02/29/24 15:42 BP 160/65 H 02/29/24 15:42 Pulse Ox 96 02/29/24 15:42 O2 Del Method Room Air 02/29/24 15:42 BMI result Body Mass Index 42.3 Gen: in acute pain HEENT: sclera anicteric, moist mucus membranes Neck: supple Lungs: clear to auscultation bilaterally Heart: regular rate and rhythm, no murmurs Abd: soft, epigastric/periumbilical tenderness Ext: no edema Skin: warm/well-perfused Neuro: alert and oriented x3, no focal findings Psych: appropriate affect DS: Data Data Completed and Pending Completed studies during hospitalization [Text1]: ITS Impressions Abdomen/Pelvis CT 02/25/24 12:51 IMPRESSION: Pancreatitis versus pancreatic uncinate process neoplasm correlate with clinical history and follow-up by MRI. Multiple small benign-appearing lesions in the liver most likely cysts or hemangiomas Small umbilical hernia Moderate size hiatal hernia Diverticulosis and lymph nodes in the mesentery Fleischner guidelines were followed. Abdomen MRI 02/26/24 17:12 IMPRESSION: 1. Masslike lesion in the uncinate process of the pancreas measuring 3.1 x 4.6 cm in AP and transverse dimensions. The finding is concerning for pancreatic neoplasm. Other differential possibility may include paraduodenal/groove pancreatitis. Recommend correlation with tissue sampling. Recommend clinical correlation, correlation with lab values and tumor markers. 2. No evidence of biliary ductal dilatation. 3. Multiple simple hepatic cysts. 4. Large sliding hiatal hernia containing stomach. Laboratory Tests 02/25/24 02/26/24 02/27/24 09:35 08:10 05:48 WBC 9.3 8.4 7.2 RBC 4.82 4.60 4.43 L Hgb 12.2 L 11.7 L 11.3 L Hct 37.3 L 36.0 L 33.9 L MCV 77.4 L 78.3 L 76.5 L MCH 25.3 L 25.4 L 25.5 L MCHC 32.7 32.5 33.3 RDW 16.5 H 16.6 H 15.9 Plt Count 296 285 278 MPV 9.7 10.6 10.4 Immature Gran % (Auto) 0.2 Neut % (Auto) 62.5 Lymph % (Auto) 25.1 [place] % (Auto) 9.1 Eos % (Auto) 2.7 Baso % (Auto) 0.4 Lymph # (Auto) 2.3 [place] # (Auto) 0.8 Eos # (Auto) 0.3 Baso # (Auto) 0.0 Abs Immat Gran (auto) 0.02 Absolute Neuts (auto) 5.8 Absolute Nucleated RBC 0.000 0.000 0.000 Nucleated RBC % (auto) 0.0 0.0 0.0 Hold Purple Top Sodium 142 141 139 Potassium 3.4 3.6 3.2 L Chloride 109 H 105 107 Carbon Dioxide 24 25 22 Anion Gap 12 15 13 BUN 15 11 12 Creatinine 1.03 0.93 0.90 Estim Creat Clear Calc 108.4 120.5 124.6 Estimated GFR > 60 > 60 > 60 Random Glucose 129 H 86 79 Calcium 9.3 8.9 8.9 Iron TIBC % Saturation Unsat Iron Binding Total Bilirubin 0.6 Direct Bilirubin 0.2 AST 13 ALT 9 Alkaline Phosphatase 57 Lactate Dehydrogenase Troponin I High Sens 4.1 Total Protein 7.5 Albumin 4.1 Triglycerides 98 Cholesterol 126 LDL Cholesterol, Calc 73 HDL Cholesterol 34 L Lipase 1530 H 796 H 02/28/24 02/29/24 02/29/24 05:32 08:54 11:53 WBC 7.6 RBC 4.62 Hgb 11.5 L Hct 35.8 L MCV 77.5 L MCH 24.9 L MCHC 32.1 RDW 15.9 Plt Count 311 MPV 10.6 Immature Gran % (Auto) Neut % (Auto) Lymph % (Auto) [place] % (Auto) Eos % (Auto) Baso % (Auto) Lymph # (Auto) [place] # (Auto) Eos # (Auto) Baso # (Auto) Abs Immat Gran (auto) Absolute Neuts (auto) Absolute Nucleated RBC 0.000 Nucleated RBC % (auto) 0.0 Hold Purple Top SEE NOTE Sodium 141 139 Potassium 3.5 3.5 Chloride 109 H 107 Carbon Dioxide 22 24 Anion Gap 14 12 BUN 10 7 L Creatinine 0.91 0.98 Estim Creat Clear Calc 123.2 114.4 Estimated GFR > 60 > 60 Random Glucose 125 H 100 Calcium 8.8 9.5 D Iron 31 L TIBC 175 L % Saturation 18 Unsat Iron Binding 144 Total Bilirubin 0.7 Direct Bilirubin AST 18 ALT 11 Alkaline Phosphatase 57 Lactate Dehydrogenase 187 Troponin I High Sens 4.1 4.6 Total Protein 7.1 Albumin 3.7 Triglycerides Cholesterol LDL Cholesterol, Calc HDL Cholesterol Lipase 833 H 895 H Discharge Plan Discharge Anticipated Discharge Date/Time: 02/29/24 16:33 Patient Disposition: Xfer Acute Care Hospital Discharge Diagnosis: pancreatitis pancreatic mass Referrals: Enrique Beckman MD [Primary Care Provider] - 1 Week Discharge Medications: New losartan 50 mg Tablet 50 mg PO DAILY Qty: 1 0RF Protocol: Hold for SBP< HOLD for SBP < : 90 pentoxifylline 400 mg Tablet Extended Release 400 mg PO TID Qty: 1 0RF oxycodone 5 mg Tablet 10 mg PO Q6H PRN (Reason: Pain, Moderate(Pain Scale 4-6)) Qty: 1 0RF Rx Instructions: Partial Fill upon patient request. enoxaparin 40 mg/0.4 mL Syringe 40 mg subcut Q24H Qty: 1 0RF hydromorphone 1 mg/mL Syringe 0.75 mg IVPUSH Q4H PRN (Reason: Pain, Severe (Pain Scale 7-10)) Qty: 1 0RF Protocol: Hold for RR < HOLD and contact provider for RR < (bpm): 12 Rx Instructions: Partial Fill upon patient request. Continued acetaminophen 650 mg tablet extended release 1,300 mg PO Q6H PRN (Reason: Pain) omeprazole 40 mg capsule,delayed release(DR/EC) 40 mg PO BID 30 Days Qty: 60 0RF Discontinued losartan-hydrochlorothiazide 100-25 mg tablet 1 tab PO DAILY dicyclomine 10 mg capsule 10 mg PO TID PRN (Reason: abdominal pain) Qty: 30 0RF atorvastatin 20 mg tablet 20 mg PO DAILY Discharge Orders: Discharge Order (Routine); Ordered 02/29/24 Ordered By: Jamila Nova Activity on Discharge: As tolerated Stand Alone Forms: Patient Portal Discharge page Print Language: Kuwaiti Care Plan Goals: diagnosis and treatment of pancreatic mass Health Concerns: pancreatitis pancreatic mass Plan of Treatment: transfer to [facility] for EUS/specialist care Assessment: See Discharge Summary.
[2024-02-29] MEDS: Enoxaparin Sodium 40 MG/0.4 ML SYRINGE SUBCUT (17:25)
[2024-03-01 16:05] LABS: Immunoglobulin G Subclass 1 433 mg/dL (382-929); Immunoglobulin G Subclass 2 365 mg/dL (241-700); Immunoglobulin G Subclass 3 86 mg/dL (22-178); Immunoglobulin G Subclass 4 23.6 mg/dL (4-86); Immunoglobulin G Total 893 mg/dL (600-1540)
[2024-03-02 08:53] LABS: CA-125 94 U/mL (<35)
[2024-03-02 10:39] LABS: Carbohydrate Antigen 19-9 <3 U/mL (<34)
== END 2024-02-29 19:46 | disposition short-term general hospital (02) | DRG 439 ==
LOC: HO.ED 15:52 → HO.EDOVER 17:59 → HO.S3 19:22
PROVIDERS: Hospitalist; Internal Medicine Gastroenterology; Admitting Provider Student in an Organized Health Care Education/Training Program; Emergency Provider Emergency Medicine; PCP Pediatrics; Visit Provider Family Medicine
DX: K85.90 Acute pancreatitis without necrosis or infection, unspecified (principal); Z68.41 Body mass index [BMI] 40.0-44.9, adult; I10 Essential (primary) hypertension; E78.5 Hyperlipidemia, unspecified; K21.9 Gastro-esophageal reflux disease without esophagitis; E87.6 Hypokalemia; K86.9 Disease of pancreas, unspecified; E66.01 Morbid (severe) obesity due to excess calories; Z71.3 Dietary counseling and surveillance; Z79.899 Other long term (current) drug therapy
CPT/HCPCS: 36415; 74177; 74183; 80048; 80053; 80061; 80076; 82784; 83540; 83615; 83690; 84484; 85025; 85027; 86301; 86304; 93005; 99285; A9585; J1170; J1650; J2270; J2405; J3480; J7120; Q9967

== ENCOUNTER 2024-02-25 17:46 | Outpatient (BNV) | payer MEDICARE, MEDICAID, SELFPAY | END 2024-02-29 07:54 | PROVIDERS: Admitting Provider Student in an Organized Health Care Education/Training Program; Emergency Provider Emergency Medicine; PCP Pediatrics; Visit Provider Internal Medicine | DX: R07.9 Chest pain, unspecified (principal) | CPT/HCPCS: 93010 ==

== ENCOUNTER → 2024-02-25 17:46 | Outpatient (BNV) | payer MEDICARE, MEDICAID, SELFPAY | PROVIDERS: Admitting Provider Student in an Organized Health Care Education/Training Program; Emergency Provider Emergency Medicine; PCP Pediatrics; Visit Provider Internal Medicine Gastroenterology | DX: K85.90 Acute pancreatitis without necrosis or infection, unspecified (principal) | CPT/HCPCS: 99223; 99232 ==

== ENCOUNTER → 2024-02-25 17:46 | Outpatient (BNV) | payer MEDICARE, MEDICAID, SELFPAY | PROVIDERS: Admitting Provider Student in an Organized Health Care Education/Training Program; Emergency Provider Emergency Medicine; PCP Pediatrics; Visit Provider Student in an Organized Health Care Education/Training Program | DX: K85.90 Acute pancreatitis without necrosis or infection, unspecified (principal) | CPT/HCPCS: 99223; 99232; 99233; 99239; 99499 ==